=== PATIENT | male | born 1945 | race Caucasian/White ===

== ENCOUNTER → 2023-06-21 09:56 | Outpatient (BNVA) | payer MEDICARE, SELFPAY | PROVIDERS: Visit Provider Internal Medicine Nephrology | DX: I15.0 Renovascular hypertension (principal); N18.31 Chronic kidney disease, stage 3a; Z94.0 Kidney transplant status | CPT/HCPCS: 99212 ==

== ENCOUNTER 2023-06-21 10:02 | Outpatient (AMB) | payer MEDICARE, SELFPAY ==
--- NOTE | 2023-06-21 09:56 | HO.NEPHOV_ITS ---
HPI HPI Comments History of Present Illness Details I had the privilege of seeing Avery in follow-up of his kidney transplant. He had donor renal transplant on 01/26/2014 in [facility] in [place]. 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 He had a follow-up transplant renal artery ultrasound which was negative for any artery stenosis. He monitors his blood pressure readings closely at home. He continues to self intermittently catheterize himself 4 times a day. He has not had any hematuria, urinary tract infection. He has not taken any new medications lately. He continues to have his right upper extremity AV fistula which remains enlarged but remains at same size. He does not have any new skin rashes, joint swellings, fever, suprapubic pain, pain over his renal transplant, nausea, vomiting, diarrhea, shortness of breath, proximal nocturnal dyspnea, orthopnea or pedal edema. His weight has been steady and has not had any night sweats. He avoids any [id number] medications. He feels well. [facility] Medical History (Updated 06/23/23 @ 07:05 by Randy Addison MD) Obstructive uropathy Proteinuria Hyperparathyroidism due to renal insufficiency Chronic kidney disease, stage 3a Surgical History (Updated 06/21/23 @ 10:07 by Lynn Coleman MA) Kidney transplant status Family History (Updated 06/21/23 @ 10:08 by Lynn Coleman MA) Father Heart disease Hypertension (Updated 06/21/23 @ 10:07 by Lynn Coleman MA) Alcohol intake: never Patient Tobacco Use Status: Never used Tobacco Vital Signs 06/21/23 10:00 Weight 143 lb 2 oz BP 152/70 H Blood Pressure Location Lt brachial Position Sitting Pulse 69 Pulse Source Pulse Oximeter Physical Exam Vital Signs: Last Vital Signs Pulse 69 06/21/23 10:00 BP 152/70 H 06/21/23 10:00 Const General: comfortable and no acute distress Orientation/consciousness: patient oriented x3 HEENT Head: Yes normocephalic Mouth: Normal oral and palatal mucosa present Eyes EOM: EOMs intact bilaterally Neck Neck: Yes supple Resp Auscultation: clear to auscultation bilaterally Cardio Jugular venous distension: no JVD Rate: regular rate Heart sounds: Murmur heart sound present GI Palpation (GI): Soft to palpation Auscultation: normal bowel sounds General: Yes no CVA tenderness Back/Spine/Pelvis Back: no CVA tenderness Skin General skin exam: no rashes or lesions noted Neuro General: patient oriented x3 and moves all extremities Extrem General: Yes no pedal edema Assessment & Plan Assessment & Plan (1) Chronic kidney disease, stage 3a: Code(s): N18.31 - Chronic kidney disease, stage 3a (2) Renal transplant recipient: Code(s): Z94.0 - Kidney transplant status (3) Hypertension: Code(s): I10 - Essential (primary) hypertension Qualifiers: Hypertension type: renovascular hypertension Qualified Code(s): I15.0 - Renovascular hypertension Plan Avery has renal transplant since 26 January 2014 ( [facility] ). His transplant function had been stable with stable serum creatinine. He has not had any significant proteinuria. He had a transplant renal artery stenosis and underwent angioplasty and stenting of his renal artery. He monitors his blood pressure closely at home and has been at goal. He is on a low-sodium diet. He has not had any urinary infections. He intermittently self- catheterize 4 times a day. He has no clinical symptoms or signs of or tacrolimus toxicity. I plan to repeat Doppler of her transplant renal artery after next visit. He continues to have a functioning right upper extremity AV fistula which he does not want to be ligated now. He follows up with wash driller helper very closely. He had a basal cell on his right pinna which had been taken care of. He should remain well hydrated. I did not make any medication changes today. Follow-up blood work including tacrolimus levels were ordered. All his questions were answered. Refills were not requested. Time spent during encounter, retrieval of data and documentation 31 minutes. Orders: Orders Electrolytes 3 Months I10 - Essential (primary) hypertension, N18.31 - Chronic kidney disease, stage 3a, Z94.0 - Kidney transplant status Calcium 3 Months I10 - Essential (primary) hypertension, N18.31 - Chronic kidney disease, stage 3a, Z94.0 - Kidney transplant status Tacrolimus Prograf 3 Months I10 - Essential (primary) hypertension, N18.31 - Chronic kidney disease, stage 3a, Z94.0 - Kidney transplant status Blood Urea Nitrogen 3 Months I10 - Essential (primary) hypertension, N18.31 - Chronic kidney disease, stage 3a, Z94.0 - Kidney transplant status Creatinine 3 Months I10 - Essential (primary) hypertension, N18.31 - Chronic kidney disease, stage 3a, Z94.0 - Kidney transplant status Complete Blood Count Auto Diff 3 Months I10 - Essential (primary) hypertension, N18.31 - Chronic kidney disease, stage 3a, Z94.0 - Kidney transplant status Coding Level of Care Code Est Pt Level 4 (15319) Diagnoses Chronic kidney disease, stage 3a N18.31 Renal transplant recipient Z94.0 Renovascular hypertension I15.0 Hypertension type: renovascular hypertension
[2023-06-21 10:00] VITALS: BP 152/70; PULSE 69
== END 2023-06-21 10:39 | disposition home or self-care (01) ==
PROVIDERS: Visit Provider Internal Medicine Nephrology
DX: I12.9 Hypertensive chronic kidney disease with stage 1 through stage 4 chronic kidney disease, or unspecified chronic kidney disease (principal); N18.31 Chronic kidney disease, stage 3a; Z94.0 Kidney transplant status
CPT/HCPCS: 99214

== ENCOUNTER 2023-09-28 10:45 | Outpatient (AMB) | payer MEDICARE, SELFPAY ==
--- NOTE | 2023-09-28 10:54 | HO.NEPHOV_ITS ---
HPI HPI Comments History of Present Illness Details I had the privilege of seeing Avery in follow-up of his kidney transplant. He had donor renal transplant on 01/26/2014 in [facility] in [place]. 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 He had a follow-up transplant renal artery ultrasound which was negative for any artery stenosis. He monitors his blood pressure readings closely at home. He continues to self intermittently catheterize himself 4 times a day. He has not had any hematuria, urinary tract infection. He has not taken any new medications lately. He continues to have his right upper extremity AV fistula which remains enlarged but remains at same size. He does not have any new skin rashes, joint swellings, fever, suprapubic pain, pain over his renal transplant, nausea, vomiting, diarrhea, shortness of breath, proximal nocturnal dyspnea, orthopnea or pedal edema. His weight has been steady and has not had any night sweats. He avoids any [id number]-bqljoqq medications. 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 His PSA was OK with urologist( Alissa). He feels well [facility] Medical History (Updated 06/23/23 @ 07:05 by Randy Addison MD) Obstructive uropathy Proteinuria Hyperparathyroidism due to renal insufficiency Chronic kidney disease, stage 3a Surgical History Kidney transplant status Family History Father Heart disease Hypertension Social History Alcohol intake: never Patient Tobacco Use Status: Never used Tobacco Vital Signs 09/28/23 10:56 Height 5 ft 9 in Weight 143 lb 2 oz BMI 21.1 BP 128/70 Blood Pressure Location Lt brachial Position Sitting Physical Exam Vital Signs: Last Vital Signs BP 148/70 H 09/28/23 10:56 BMI result Body Mass Index 21.1 Const General: comfortable and no acute distress Orientation/consciousness: patient oriented x3 HEENT Head: Yes normocephalic Mouth: Normal oral and palatal mucosa present Eyes EOM: EOMs intact bilaterally Neck Neck: Yes supple Resp Auscultation: clear to auscultation bilaterally Cardio Jugular venous distension: no JVD Rate: regular rate GI Palpation (GI): Soft to palpation Auscultation: normal bowel sounds General: Yes no CVA tenderness Back/Spine/Pelvis Back: no CVA tenderness Skin General skin exam: no rashes or lesions noted Neuro General: patient oriented x3 and moves all extremities Extrem Other: AVF RUE General: Yes no pedal edema Assessment & Plan Assessment & Plan (1) Renal transplant recipient: Code(s): Z94.0 - Kidney transplant status (2) Chronic kidney disease, stage 3a: Code(s): N18.31 - Chronic kidney disease, stage 3a (3) Hypertension: Code(s): I10 - Essential (primary) hypertension Qualifiers: Hypertension type: renovascular hypertension Qualified Code(s): I15.0 - Renovascular hypertension Plan Avery has renal transplant since 26 January 2014 ( [facility] ). His transplant function had been stable with stable serum creatinine. He has n ot had any significant proteinuria. He had a transplant renal artery stenosis and underwent angioplasty and stenting of his renal artery. He monitors his blood pressure closely at home and has been at goal. He is on a low-sodium diet. He has not had any urinary infections. He intermittently self- catheterize 4 times a day. He has no clinical symptoms or signs of or tacrolimus toxicity. I plan to repeat Doppler of her transplant renal artery after next visit. He continues to have a functioning right upper extremity AV fistula which he does not want to be ligated now. He follows up with epic ambulatory analysts very closely. He should remain well hydrated. I did not make any medication changes today. Follow-up blood work including tacrolimus levels were ordered. All his questions were answered. Orders: Orders Creatinine Today I10 - Essential (primary) hypertension, N18.31 - Chronic kidney disease, stage 3a, Z94.0 - Kidney transplant status Blood Urea Nitrogen Today I10 - Essential (primary) hypertension, N18.31 - Chronic kidney disease, stage 3a, Z94.0 - Kidney transplant status Alanine Aminotransferase Today I10 - Essential (primary) hypertension, N18.31 - Chronic kidney disease, stage 3a, Z94.0 - Kidney transplant status Aspartate Amino Transferase Today I10 - Essential (primary) hypertension, N18.31 - Chronic kidney disease, stage 3a, Z94.0 - Kidney transplant status Parathyroid Hormone Intact Today I10 - Essential (primary) hypertension, N18.31 - Chronic kidney disease, stage 3a, Z94.0 - Kidney transplant status Complete Blood Count Auto Diff Today I10 - Essential (primary) hypertension, N18.31 - Chronic kidney disease, stage 3a, Z94.0 - Kidney transplant status Tacrolimus Prograf Today I10 - Essential (primary) hypertension, N18.31 - Chronic kidney disease, stage 3a, Z94.0 - Kidney transplant status Calcium Today I10 - Essential (primary) hypertension, N18.31 - Chronic kidney disease, stage 3a, Z94.0 - Kidney transplant status Electrolytes Today I10 - Essential (primary) hypertension, N18.31 - Chronic kidney disease, stage 3a, Z94.0 - Kidney transplant status Vitamin D 25-OH Total Today I10 - Essential (primary) hypertension, N18.31 - Chronic kidney disease, stage 3a, Z94.0 - Kidney transplant status Phosphorus Today I10 - Essential (primary) hypertension, N18.31 - Chronic kidney disease, stage 3a, Z94.0 - Kidney transplant status Coding Level of Care Code Est Pt Level 4 (55543) Diagnoses Renal transplant recipient Z94.0 Chronic kidney disease, stage 3a N18.31 Renovascular hypertension I15.0 Hypertension type: renovascular hypertension Results Reviewed Nephrology Results: No Data to Display
[2023-09-28 10:56] VITALS: BP 128/70; BMI 21.1
== END 2023-09-28 11:40 | disposition home or self-care (01) ==
PROVIDERS: Visit Provider Internal Medicine Nephrology
DX: Z94.0 Kidney transplant status (principal); N18.31 Chronic kidney disease, stage 3a; I15.0 Renovascular hypertension
CPT/HCPCS: 99214

== ENCOUNTER → 2023-09-28 10:45 | Outpatient (BNVA) | payer MEDICARE, SELFPAY | PROVIDERS: Visit Provider Internal Medicine Nephrology | DX: I15.0 Renovascular hypertension (principal); N18.31 Chronic kidney disease, stage 3a; Z94.0 Kidney transplant status | CPT/HCPCS: 99212 ==

== ENCOUNTER 2024-01-04 12:09 | Outpatient (AMB) | payer MEDICARE, SELFPAY ==
--- NOTE | 2024-01-04 12:42 | HO.NEPHOV ---
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 He had donor renal transplant on 01/26/2014 in [facility] in [place]. 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 He had a follow-up transplant renal artery ultrasound which was negative for any artery stenosis. He monitors his blood pressure readings closely at home. He continues to self intermittently catheterize himself 4 times a day. He has not had any hematuria, urinary tract infection. He has not taken any new medications lately. He continues to have his right upper extremity AV fistula which remains enlarged but remains at same size. He does not have any new skin rashes, joint swellings, fever, suprapubic pain, pain over his renal transplant, nausea, vomiting, diarrhea, shortness of breath, proximal nocturnal dyspnea, orthopnea or pedal edema. His weight has been steady and has not had any night sweats. He avoids any iutj-jkp-vwymxpd medications. He has H/O BCC which he follows with his warp hanger . His PSA was OK with urologist( Alissa). He feels well [facility] Medical History (Updated 06/23/23 @ 07:05 by Randy Addison MD) Obstructive uropathy Proteinuria Hyperparathyroidism due to renal insufficiency Chronic kidney disease, stage 3a Surgical History Kidney transplant status Family History Father Heart disease Hypertension Social History Alcohol intake: never Patient Tobacco Use Status: Never used Tobacco Physical Exam Vital Signs: Last Vital Signs Pulse 56 01/04/24 12:43 BP 130/60 01/04/24 12:43 Pulse Ox 98 01/04/24 12:43 Oxygen Delivery Method Room Air 01/04/24 12:43 BMI result Body Mass Index 21.3 Const General: comfortable and no acute distress Orientation/consciousness: patient oriented x3 HEENT Head: Yes normocephalic Mouth: Normal oral and palatal mucosa present Eyes EOM: EOMs intact bilaterally Neck Neck: Yes supple Resp Auscultation: clear to auscultation bilaterally Cardio Jugular venous distension: no JVD Rate: regular rate GI Palpation (GI): Soft to palpation Auscultation: normal bowel sounds General: Yes no CVA tenderness Back/Spine/Pelvis Back: no CVA tenderness Skin General skin exam: no rashes or lesions noted Neuro General: patient oriented x3 and moves all extremities Extrem Other: RUE AVF + General: Yes no pedal edema Results Reviewed Nephrology Results: No Data to Display Assessment & Plan Assessment & Plan (1) Renal transplant recipient: Code(s): Z94.0 - Kidney transplant status Category: Surgical (2) Chronic kidney disease, stage 3a: Code(s): N18.31 - Chronic kidney disease, stage 3a Category: Medical (3) Hypertension: Code(s): I10 - Essential (primary) hypertension Category: Medical Qualifiers: Hypertension type: renovascular hypertension Qualified Code(s): I15.0 - Renovascular hypertension Plan Avery has renal transplant since 26 January 2014 ( [facility] ). His transplant function had been stable with stable serum creatinine. He has not had any significant proteinuria. He had a transplant renal artery stenosis and underwent angioplasty and stenting of his renal artery. He monitors his blood pressure closely at home and has been at goal. He is on a low-sodium diet. He has not had any urinary infections. He intermittently self-catheterize 4 times a day. He has no clinical symptoms or signs of or tacrolimus toxicity. I plan to repeat Doppler of her transplant renal artery with time. I increased his tacrolimus dosage to 2.5 mg daily. He was asked to drink less free water given his fluctuant serum sodium. He continues to have a functioning right upper extremity AV fistula which he does not want to be ligated now. He follows up with warp hanger very closely. He should remain well hydrated. I did not make any other medication changes today. Follow-up blood work including tacrolimus levels were ordered. All his questions were answered. Orders: Orders Tacrolimus Prograf Today I15.0 - Renovascular hypertension, N18.31 - Chronic kidney disease, stage 3a, Z94.0 - Kidney transplant status Blood Urea Nitrogen Today I15.0 - Renovascular hypertension, N18.31 - Chronic kidney disease, stage 3a, Z94.0 - Kidney transplant status Creatinine Today I15.0 - Renovascular hypertension, N18.31 - Chronic kidney disease, stage 3a, Z94.0 - Kidney transplant status Electrolytes Today I15.0 - Renovascular hypertension, N18.31 - Chronic kidney disease, stage 3a, Z94.0 - Kidney transplant status Medications: Changed From amlodipine 10 mg PO DAILY To amlodipine 10 mg PO DAILY 90 days 90 tabs 3RF Coding Level of Care Code Est Pt Level 4 (88552) Diagnoses Renal transplant recipient Z94.0 Chronic kidney disease, stage 3a N18.31 Renovascular hypertension I15.0 Hypertension type: renovascular hypertension
[2024-01-04 12:43] VITALS: BP 130/60; PULSE 56; O2SAT 98; BMI 21.3
== END 2024-01-04 13:13 | disposition home or self-care (01) ==
PROVIDERS: Visit Provider Internal Medicine Nephrology
DX: Z94.0 Kidney transplant status (principal); N18.31 Chronic kidney disease, stage 3a; I15.0 Renovascular hypertension
CPT/HCPCS: 99214

== ENCOUNTER → 2024-01-04 12:09 | Outpatient (BNVA) | payer MEDICARE, SELFPAY | PROVIDERS: Visit Provider Internal Medicine Nephrology | DX: N18.31 Chronic kidney disease, stage 3a (principal); I15.0 Renovascular hypertension; Z79.899 Other long term (current) drug therapy; Z94.0 Kidney transplant status | CPT/HCPCS: 99212 ==

== ENCOUNTER 2024-04-06 10:34 | Outpatient (AMB) | payer MEDICARE, SELFPAY ==
[2024-04-06 11:04] VITALS: BP 140/54; PULSE 65; O2SAT 99; BMI 21.0
--- NOTE | 2024-04-06 11:04 | HO.NEPHOV_ITS ---
Vital Signs 04/06/24 11:04 Height 5 ft 9 in Weight 142 lb 8 oz BMI 21.0 BP 140/54 H Blood Pressure Location Lt brachial Position Sitting Pulse 65 Pulse Source Pulse Oximeter Pulse Oximetry (%) 99 Oxygen Delivery Method Room Air Intake Visit Reasons: 10 wks follow up/ CON Dermatology Technician Required: No Accompanied by: Self / Same As Patient Allergies No Known Allergies Allergy (Verified 04/06/24 11:06) HPI Comments Details: I had the privilege of seeing Avery in follow-up of his kidney transplant. He had donor renal transplant on 01/26/2014 in [facility] in [place]. 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 He had a follow-up transplant renal artery ultrasound which was negative for any artery stenosis. He monitors his blood pressure readings closely at home. He continues to self intermittently catheterize himself 4 times a day. He has not had any hematuria, urinary tract infection. He has not taken any new medications lately. He continues to have his right upper extremity AV fistula which remains enlarged but remains at same size. He does not have any new skin rashes, joint swellings, fever, suprapubic pain, pain over his renal transplant, nausea, vo miting, diarrhea, shortness of breath, proximal nocturnal dyspnea, orthopnea or pedal edema. His weight has been steady and has not had any night sweats. He avoids any jqfm-smj-hwjilhr medications. He has H/O BCC which he follows with his chairperson anesthesiology . His PSA was OK with urologist( Alissa). He feels well [facility] Medical History (Updated 06/23/23 @ 07:05 by Randy Addison MD) Obstructive uropathy Proteinuria Hyperparathyroidism due to renal insufficiency Chronic kidney disease, stage 3a Surgical History Kidney transplant status Family History Father Heart disease Hypertension Social History Alcohol intake: never Patient Tobacco Use Status: Never used Tobacco Physical Exam Vital Signs: Last Vital Signs Pulse 65 04/06/24 11:04 BP 140/54 H 04/06/24 11:04 Pulse Ox 99 04/06/24 11:04 Oxygen Delivery Method Room Air 04/06/24 11:04 BMI result Body Mass Index 21.0 Const General: comfortable and no acute distress Orientation/consciousness: patient oriented x3 HEENT Head: Yes normocephalic Mouth: Normal oral and palatal mucosa present Eyes EOM: EOMs intact bilaterally Neck Neck: Yes supple Resp Auscultation: clear to auscultation bilaterally Cardio Jugular venous distension: no JVD Rate: regular rate GI Palpation (GI): Soft to palpation Auscultation: normal bowel sounds General: Yes no CVA tenderness Back/Spine/Pelvis Back: no CVA tenderness Skin General skin exam: no rashes or lesions noted Neuro General: patient oriented x3 and moves all extremities Extrem Other: R UE AVF Results Reviewed Nephrology Results: No Data to Display Assessment & Plan Assessment & Plan (1) Chronic kidney disease, stage 3a: Code(s): N18.31 - Chronic kidney disease, stage 3a Category: Medical (2) Renal transplant recipient: Code(s): Z94.0 - Kidney transplant status Category: Surgical (3) Hypertension: Code(s): I10 - Essential (primary) hypertension Category: Medical Qualifiers: Hypertension type: renovascular hypertension Qualified Code(s): I15.0 - Renovascular hypertension Plan Avery has renal transplant since 26 January 2014 ( [facility] ). His transplant function had been stable with stable serum creatinine. He has not had any significant proteinuria. He had a transplant renal artery stenosis and underwent angioplasty and stenting of his renal artery. I shall repeat Doppler renal tx artery after next visit. He monitors his blood pressure closely at home and has been at goal. He is on a low-sodium diet. He has not had any urinary infections. He intermittently self-catheterize 4 times a day. He has no clinical symptoms or signs of or tacrolimus toxicity. I plan to repeat Doppler of her transplant renal artery with time. He was asked to drink less free water given his fluctuant serum sodium. He continues to have a functioning right upper extremity AV fistula which he wants to be ligated now ( referred). He follows up with chairperson anesthesiology very closely. He should remain well hydrated. I did not make any other medication changes today. Follow-up blood work including tacrolimus levels were ordered. All his questions were answered. Orders: Orders Tacrolimus Prograf Today I15.0 - Renovascular hypertension, N18.31 - Chronic kidney disease, stage 3a, Z94.0 - Kidney transplant status Blood Urea Nitrogen Today I15.0 - Renovascular hypertension, N18.31 - Chronic kidney disease, stage 3a, Z94.0 - Kidney transplant status Calcium Today I15.0 - Renovascular hypertension, N18.31 - Chronic kidney disease, stage 3a, Z94.0 - Kidney transplant status Phosphorus Today I15.0 - Renovascular hypertension, N18.31 - Chronic kidney disease, stage 3a, Z94.0 - Kidney transplant status Aspartate Amino Transferase Today I15.0 - Renovascular hypertension, N18.31 - Chronic kidney disease, stage 3a, Z94.0 - Kidney transplant status Complete Blood Count Auto Diff Today I15.0 - Renovascular hypertension, N18.31 - Chronic kidney disease, stage 3a, Z94.0 - Kidney transplant status Creatinine Today I15.0 - Renovascular hypertension, N18.31 - Chronic kidney disease, stage 3a, Z94.0 - Kidney transplant status Electrolytes Today I15.0 - Renovascular hypertension, N18.31 - Chronic kidney disease, stage 3a, Z94.0 - Kidney transplant status Magnesium Today I15.0 - Renovascular hypertension, N18.31 - Chronic kidney disease, stage 3a, Z94.0 - Kidney transplant status Alanine Aminotransferase Today I15.0 - Renovascular hypertension, N18.31 - Chronic kidney disease, stage 3a, Z94.0 - Kidney transplant status Coding Level of Care Code Est Pt Level 4 (25036) Diagnoses Chronic kidney disease, stage 3a N18.31 Renal transplant recipient Z94.0 Renovascular hypertension I15.0 Hypertension type: renovascular hypertension
== END 2024-04-06 11:33 | disposition home or self-care (01) ==
PROVIDERS: Visit Provider Internal Medicine Nephrology
DX: N18.31 Chronic kidney disease, stage 3a (principal); T86.19 Other complication of kidney transplant; I15.0 Renovascular hypertension; Z94.0 Kidney transplant status
CPT/HCPCS: 99214

== ENCOUNTER → 2024-04-06 10:34 | Outpatient (BNVA) | payer MEDICARE, SELFPAY | PROVIDERS: Visit Provider Internal Medicine Nephrology | DX: I15.0 Renovascular hypertension (principal); N18.31 Chronic kidney disease, stage 3a; Z94.0 Kidney transplant status; T86.19 Other complication of kidney transplant | CPT/HCPCS: 99212 ==

== ENCOUNTER 2024-06-13 14:09 | Outpatient (AMB) | payer MEDICARE, SELFPAY ==
--- NOTE | 2024-06-13 14:18 | HO.NEPHOV_ITS ---
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 He had donor renal transplant on 01/26/2014 in [facility] in [place]. 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 He had a follow-up transplant renal artery ultrasound which was negative for any artery stenosis. He has been having flu-like symptoms for last couple of weeks. He had chills, fever, GI symptoms with a poor appetite. Currently he feels very lousy with unremitting continuous cough. He monitors his blood pressure readings closely at home. He has been taking CAMRYN inhibitor while being sick. His urine output is marginally less than usual. He continues to self intermittently catheterize himself 4 times a day. He has not had any hematuria, urinary tract infection. He has not taken any other new medications lately. He continues to have his right upper extremity AV fistula which remains enlarged but remains at same size. He does not have any new skin rashes, joint swellings, fever, suprapubic pain, pain over his renal transplant, nausea, vomiting, diarrhea, shortness of breath, proximal nocturnal dyspnea, orthopnea or pedal edema. His weight has been steady and has not had any night sweats. He avoids any [id number] medications. He has H/O BCC which he follows with his county tax assessor . His PSA was OK with urologist( Alissa). [facility] Medical History (Updated 06/14/24 @ 09:26 by Randy Addison MD) Obstructive uropathy Proteinuria Hyperparathyroidism due to renal insufficiency Chronic kidney disease, stage 3a Surgical History Kidney transplant status Family History Father Heart disease Hypertension Social History Alcohol intake: never Patient Tobacco Use Status: Never used Tobacco Review of Systems Const All systems reviewed & are unremarkable except as noted in HPI and below Physical Exam Vital Signs: Last Vital Signs Pulse 66 06/13/24 14:20 BP 122/60 06/13/24 14:20 Pulse Ox 97 06/13/24 14:20 Oxygen Delivery Method Room Air 06/13/24 14:20 BMI result Body Mass Index 20.3 Const General: comfortable and no acute distress Orientation/consciousness: patient oriented x3 HEENT Head: Yes normocephalic Mouth: Normal oral and palatal mucosa present Eyes EOM: EOMs intact bilaterally Neck Neck: Yes supple Resp Auscultation: diminished lung sounds Cardio Jugular venous distension: no JVD Rate: regular rate GI Palpation (GI): Soft to palpation Auscultation: normal bowel sounds General: Yes no CVA tenderness Back/Spine/Pelvis Back: no CVA tenderness Skin General skin exam: no rashes or lesions noted Neuro General: patient oriented x3 and moves all extremities Extrem General: Yes no pedal edema Results Reviewed Nephrology Results: Hgb 13.2 g/dl (14.0-18.0) L 06/13/24 WBC 4.1 X10*3/uL (4.8-10.8) L 06/13/24 Plt Count 280 X10*3/uL (160-400) 06/13/24 Sodium 129 mmol/L (135-145) L 06/13/24 Potassium 4.5 mmol/L (3.3-5.1) 06/13/24 Chloride 99 mmol/L (96-108) 06/13/24 Carbon Dioxide 19 mmol/L (22-29) L 06/13/24 BUN 30 mg/dL (9-16) H 06/13/24 Creatinine 1.81 mg/dL (0.5-1.4) H 06/13/24 Calcium 9.6 mg/dL (8.4-10.2) 06/13/24 Phosphorus 2.8 mg/dL (2.7-4.5) 06/13/24 PTH Intact 109.3 pg/mL (8.7-77.1) H 06/13/24 Assessment & Plan Assessment & Plan (1) Chronic kidney disease, stage 3a: Code(s): N18.31 - Chronic kidney disease, stage 3a Category: Medical (2) Renal transplant recipient: Code(s): Z94.0 - Kidney transplant status Category: Surgical (3) Hypertension: Code(s): I10 - Essential (primary) hypertension Category: Medical Qualifiers: Hypertension type: renovascular hypertension Qualified Code(s): I15.0 - Renovascular hypertension (4) Cough: Code(s): R05.9 - Cough, unspecified Category: Medical Qualifiers: Cough type: acute Qualified Code(s): R05.1 - Acute cough Plan Avery has renal transplant since 26 January 2014 ( [facility] ). His transplant function had been stable . He has not had any significant proteinuria. He has been having respiratory illness and continued to take CAMRYN inhibitor which has resulted in lower urine output than usual. I have asked him to hold his lisinopril. He had a transplant renal artery stenosis and underwent angioplasty and stenting of his renal artery. I shall repeat Doppler renal tx artery with time. He monitors his blood pressure closely at home and has been at goal. He is on a low-sodium diet. He has not had any urinary infections. He intermittently self-catheterize 4 times a day. He has no clinical symptoms or signs of or tacrolimus toxicity. He was asked to drink less free water given his fluctuant serum sodium. He continues to have a functioning right upper extremity AV fistula which he wants to be ligated now ( referred). He follows up with county tax assessor very closely. He should remain well hydrated. I have sent him to have stat lab work and chest x-ray. If he shows any pulmonary infiltrate, I have start him on antibiotics and short course of prednisone. If there is pulmonary infiltrate he will need a follow-up CT scan in a few weeks given history of renal transplant. All his and his 's questions were answered. Time spent coordinating care, patient encounter and documentation 40 minutes. Orders: Orders Complete Blood Count Auto Diff 06/13/24 I15.0 - Renovascular hypertension, N18.31 - Chronic kidney disease, stage 3a, Z94.0 - Kidney transplant status Electrolytes 06/13/24 I15.0 - Renovascular hypertension, N18.31 - Chronic kidney disease, stage 3a, Z94.0 - Kidney transplant status Alanine Aminotransferase 06/13/24 I15.0 - Renovascular hypertension, N18.31 - Chronic kidney disease, stage 3a, Z94.0 - Kidney transplant status Aspartate Amino Transferase 06/13/24 I15.0 - Renovascular hypertension, N18.31 - Chronic kidney disease, stage 3a, Z94.0 - Kidney transplant status Tacrolimus Prograf 06/13/24 I15.0 - Renovascular hypertension, N18.31 - Chronic kidney disease, stage 3a, Z94.0 - Kidney transplant status Vitamin D 25-OH Total 06/13/24 I15.0 - Renovascular hypertension, N18.31 - Chronic kidney disease, stage 3a, Z94.0 - Kidney transplant status XR chest 1V 06/13/24 R05.9 - Cough, unspecified, Z94.0 - Kidney transplant status Calcium 06/13/24 I15.0 - Renovascular hypertension, N18.31 - Chronic kidney disease, stage 3a, Z94.0 - Kidney transplant status Blood Urea Nitrogen 06/13/24 I15.0 - Renovascular hypertension, N18.31 - Chronic kidney disease, stage 3a, Z94.0 - Kidney transplant status Creatinine 06/13/24 I15.0 - Renovascular hypertension, N18.31 - Chronic kidney disease, stage 3a, Z94.0 - Kidney transplant status Phosphorus 06/13/24 I15.0 - Renovascular hypertension, N18.31 - Chronic kidney disease, stage 3a, Z94.0 - Kidney transplant status Magnesium 06/13/24 I15.0 - Renovascular hypertension, N18.31 - Chronic kidney disease, stage 3a, Z94.0 - Kidney transplant status Parathyroid Hormone Intact 06/13/24 I15.0 - Renovascular hypertension, N18.31 - Chronic kidney disease, stage 3a, Z94.0 - Kidney transplant status Coding Level of Care Code Est Pt Level 5 (93703) Diagnoses Chronic kidney disease, stage 3a N18.31 Renal transplant recipient Z94.0 Renovascular hypertension I15.0 Hypertension type: renovascular hypertension Acute cough R05.1 Cough type: acute
[2024-06-13 14:20] VITALS: BP 122/60; PULSE 66; O2SAT 97; BMI 20.3
== END 2024-06-13 14:55 | disposition home or self-care (01) ==
PROVIDERS: Visit Provider Internal Medicine Nephrology
DX: N18.31 Chronic kidney disease, stage 3a (principal); Z94.0 Kidney transplant status; I15.0 Renovascular hypertension; R05.1 Acute cough
CPT/HCPCS: 99215

== ENCOUNTER 2024-06-13 14:09 | Outpatient (REF) | payer MEDICARE, SELFPAY ==
--- NOTE | ~2024-06-13 | XR_ITS ---
EXAMINATION: XR CHEST CLINICAL INFORMATION: Cough. COMPARISON: None available. TECHNIQUE: Frontal view of the chest was obtained. FINDINGS: Normal appearance of the cardiomediastinal silhouette. Mild central and bibasilar peribronchial thickening. Subtle focal asymmetric haziness projecting over the medial right lower lung field. No pleural effusion. No pneumothorax. No acute osseous findings. XR/XR chest 1V IMPRESSION: Findings are suggestive of small airways disease with equivocal early infiltrates in the right lower lung field. Electronically signed by: Alia Justin MD 06/13/2024 05:17 PM EST
[2024-06-13 15:38] LABS: MANUAL DIFF FLAG NO
[2024-06-13 15:44] LABS: Eosinophils Percent Auto 0.2 % (0-4); Hematocrit 38.4 % (42.0-52.0); Hemoglobin 13.2 g/dl (14.0-18.0); Imm Gran Abs Auto 0.07 X10*3/uL (0.00-0.03); Imm Gran Pct Auto 1.7 % (0.0-0.4); Lymphocytes Absolute Auto 0.3 X10*3/uL (1.2-4.9); Lymphocytes Percent Auto 7.2 % (20-40); Mean Corpuscular HGB Conc 34.4 g/dl (31.0-36.0); Mean Corpuscular Hemoglobin 30.9 pg (27.0-33.0); Mean Corpuscular Volume 89.9 fL (80.0-98.0); Mean Platelet Volume 8.6 fL (9.4-12.4); Monocytes Absolute Auto 0.7 X10*3/uL (0.1-1.2); Monocytes Percent Auto 17.5 % (2-11); Neutrophils Percent Auto 73.4 % (45-73); Platelet Count 280 X10*3/uL (160-400); Red Blood Count 4.27 X10*6/uL (4.60-5.80); Red Cell Distribution Width 11.9 % (11.0-16.0); White Blood Count 4.1 X10*3/uL (4.8-10.8)
[2024-06-13 16:16] LABS: Parathyroid Hormone Intact 109.3 pg/mL (8.7-77.1)
[2024-06-13 16:57] LABS: Alanine Aminotransferase 39 U/L (0-40); Anion Gap 16 (12-20); Aspartate Amino Transferase 38 U/L (5-37); Blood Urea Nitrogen 30 mg/dL (9-16); Calcium 9.6 mg/dL (8.4-10.2); Carbon Dioxide 19 mmol/L (22-29); Chloride 99 mmol/L (96-108); Estimated Glomerular Filt Rate 36; Magnesium 1.7 mg/dL (1.6-2.6); Phosphorus 2.8 mg/dL (2.7-4.5); Potassium 4.5 mmol/L (3.3-5.1); Sodium 129 mmol/L (135-145)
[2024-06-13 17:07] LABS: Vitamin D 25-OH Total 49.1 ng/mL (>30)
[2024-06-14 15:44] LABS: Tacrolimus Prograf 12.6 mcg/L
== END 2024-06-13 14:10 | disposition home or self-care (01) ==
LOC: HO.LAB 14:09
PROVIDERS: Visit Provider Internal Medicine Nephrology
DX: I15.0 Renovascular hypertension (principal); N18.31 Chronic kidney disease, stage 3a; Z94.0 Kidney transplant status; R05.1 Acute cough
CPT/HCPCS: 36415; 71045; 80051; 80197; 82306; 82310; 82565; 83735; 83970; 84100; 84450; 84460; 84520; 85025; 99212

== ENCOUNTER 2024-07-06 09:28 | Outpatient (AMB) | payer MEDICARE, SELFPAY ==
--- NOTE | 2024-07-06 09:34 | HO.NEPHOV ---
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 He had donor renal transplant on 01/26/2014 in [facility] in [place]. 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 He had a follow-up transplant renal artery ultrasound which was negative for any artery stenosis. He has been having flu-like symptoms for last couple of weeks. He had chills, fever, GI symptoms with a poor appetite. Currently he feels very lousy with unremitting continuous cough. He monitors his blood pressure readings closely at home. He is on ACEI. He continues to self intermittently catheterize himself 4 times a day. He has not had any hematuria, urinary tract infection. He continues to have his right upper extremity AV fistula which remains enlarged but remains at same size. He does not have any new skin rashes, joint swellings, fever, suprapubic pain, pain over his renal transplant, nausea, vomiting, diarrhea, shortness of breath, proximal nocturnal dyspnea, orthopnea or pedal edema. His weight has been steady and has not had any night sweats. He avoids any [id number] medications. 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 His PSA was OK with urologist( Alissa). He recently had pneumonia which was treated with antibiotics. He had been having RUE swelling which had some redness and edema. It was treated with antibiotics but swelling persists. [facility]LY [facility], [facility] Medical History (Updated 07/06/24 @ 10:19 by Randy Addison MD) Obstructive uropathy Proteinuria Hyperparathyroidism due to renal insufficiency Chronic kidney disease, stage 3a Surgical History Kidney transplant status Family History Father Heart disease Hypertension Social History Alcohol intake: never Patient Tobacco Use Status: Never used Tobacco Review of Systems Const All systems reviewed & are unremarkable except as noted in HPI and below Physical Exam Vital Signs: Last Vital Signs Pulse 73 07/06/24 09:43 BP 140/60 H 07/06/24 09:43 Pulse Ox 97 07/06/24 09:43 Oxygen Delivery Method Room Air 07/06/24 09:43 BMI result Body Mass Index 21.0 Const General: comfortable and no acute distress Orientation/consciousness: patient oriented x3 HEENT Head: Yes normocephalic Mouth: Normal oral and palatal mucosa present Eyes EOM: EOMs intact bilaterally Neck Neck: Yes supple Resp Auscultation: clear to auscultation bilaterally Cardio Jugular venous distension: no JVD Rate: regular rate GI Palpation (GI): Soft to palpation Auscultation: normal bowel sounds General: Yes no CVA tenderness Back/Spine/Pelvis Back: no CVA tenderness Skin General skin exam: no rashes or lesions noted Neuro General: patient oriented x3 and moves all extremities Extrem General: Yes no pedal edema Results Reviewed Nephrology Results: Hgb 13.2 g/dl (14.0-18.0) L 06/13/24 WBC 4.1 X10*3/uL (4.8-10.8) L 06/13/24 Plt Count 280 X10*3/uL (160-400) 06/13/24 Sodium 129 mmol/L (135-145) L 06/13/24 Potassium 4.5 mmol/L (3.3-5.1) 06/13/24 Chloride 99 mmol/L (96-108) 06/13/24 Carbon Dioxide 19 mmol/L (22-29) L 06/13/24 BUN 30 mg/dL (9-16) H 06/13/24 Creatinine 1.81 mg/dL (0.5-1.4) H 06/13/24 Calcium 9.6 mg/dL (8.4-10.2) 06/13/24 Phosphorus 2.8 mg/dL (2.7-4.5) 06/13/24 PTH Intact 109.3 pg/mL (8.7-77.1) H 06/13/24 Assessment & Plan Assessment & Plan (1) Chronic kidney disease, stage 3a: Code(s): N18.31 - Chronic kidney disease, stage 3a Category: Medical (2) Hypertension: Code(s): I10 - Essential (primary) hypertension Category: Medical Qualifiers: Hypertension type: renovascular hypertension Qualified Code(s): I15.0 - Renovascular hypertension (3) Renal transplant recipient: Code(s): Z94.0 - Kidney transplant status Category: Surgical (4) Cough: Code(s): R05.9 - Cough, unspecified Category: Medical Qualifiers: Cough type: acute Qualified Code(s): R05.1 - Acute cough (5) AVF (arteriovenous fistula): Code(s): I77.0 - Arteriovenous fistula, acquired Category: Medical Plan Avery has renal transplant since 26 January 2014 ( [facility] ). His transplant function had been stable . He has not had any significant proteinuria. His lisinopril is on hold since he had the pneumonia. He had a transplant renal artery stenosis and underwent angioplasty and stenting of his renal artery. I shall repeat Doppler renal tx artery with time. He monitors his blood pressure closely at home and has been at goal. He is on a low-sodium diet. He has not had any urinary infections. He intermittently self-catheterize 4 times a day. He has no clinical symptoms or signs of or tacrolimus toxicity. He was asked to drink less free water given his fluctuant serum sodium. He continues to have a functioning right upper extremity AV fistula which he wants to be ligated now ( referred). He follows up with intermodal customer service very closely. He should remain well hydrated. I agreed to restart ACEI. He had a pulmonary infiltrate in a CXR for which he will need a follow-up CT scan ( ordered)given history of renal transplant. He needs urgent vascular eval and ligation of AVF. Dr Marroquin agreed to see him today. All his and his 's questions were answered. Orders: Orders Complete Blood Count Auto Diff 1 Month N18.31 - Chronic kidney disease, stage 3a Phosphorus 1 Month N18.31 - Chronic kidney disease, stage 3a Magnesium 1 Month N18.31 - Chronic kidney disease, stage 3a CT chest wo IV con Today R05.1 - Acute cough Creatinine 1 Month N18.31 - Chronic kidney disease, stage 3a Blood Urea Nitrogen 1 Month N18.31 - Chronic kidney disease, stage 3a Electrolytes 1 Month N18.31 - Chronic kidney disease, stage 3a Calcium 1 Month N18.31 - Chronic kidney disease, stage 3a Tacrolimus Prograf 1 Month N18.31 - Chronic kidney disease, stage 3a Referrals Vascular Surgery Referral I77.0 - Arteriovenous fistula, acquired Medications: Changed From tacrolimus (5 x 0.5 mg) Take 1 mg Am and 1.5 mg PM 90 days 450 caps 4RF To tacrolimus (5 x 0.5 mg) Take 2mg AM and 3mg PM 90 days 450 caps 4RF Coding Level of Care Code Est Pt Level 4 (65537) Diagnoses Chronic kidney disease, stage 3a N18.31 Renovascular hypertension I15.0 Hypertension type: renovascular hypertension Renal transplant recipient Z94.0 Acute cough R05.1 Cough type: acute AVF (arteriovenous fistula) I77.0
[2024-07-06 09:43] VITALS: BP 140/60; PULSE 73; O2SAT 97; BMI 21.0
== END 2024-07-06 10:29 | disposition home or self-care (01) ==
PROVIDERS: Visit Provider Internal Medicine Nephrology
DX: N18.31 Chronic kidney disease, stage 3a (principal); I15.0 Renovascular hypertension; Z94.0 Kidney transplant status; R05.1 Acute cough; I77.0 Arteriovenous fistula, acquired
CPT/HCPCS: 99214

== ENCOUNTER → 2024-07-06 09:28 | Outpatient (BNVA) | payer MEDICARE, SELFPAY | PROVIDERS: Visit Provider Internal Medicine Nephrology | DX: I77.0 Arteriovenous fistula, acquired (principal); I15.0 Renovascular hypertension; N18.31 Chronic kidney disease, stage 3a; R05.1 Acute cough; Z94.0 Kidney transplant status | CPT/HCPCS: 99202; 99212 ==

== ENCOUNTER 2024-07-06 10:54 | Outpatient (AMB) | payer MEDICARE, SELFPAY ==
[2024-07-06 10:58] VITALS: BMI 21.0
--- NOTE | 2024-07-06 10:58 | A.OFFVIS_ITS ---
Vital Signs 07/06/24 10:58 Height 5 ft 9 in Weight 142 lb BMI 21.0 Intake Visit Reasons: [employer] referral for Fistula Intake Note: [employer] referred from Nephrology for Right UE weeping s/p fistula placement over a deceade ago. Has not been in use to to Kidney transplant 11 yrs ago. Pt states weeping started yesterday and Right LE swelling has been worsening since last week. Allergies No Known Allergies Allergy (Verified 07/06/24 11:03) HPI HPI INS[employer] referral for Fistula: Details: Very pleasant 79-year-old gentleman who presents for referral for right arm fistula with arm swelling. 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 He has been followed by him for kidney transplant nearly 10 years ago. This was performed on 01/26/2014 at [facility] in [place]. Since that time he has been doing extremely well. Many years ago he had a left upper extremity brachiocephalic fistula placed. It has progressively been getting larger. Most recently his arm began swelling and he has now some serous drainage from the arm as well. He now presents to us for vascular evaluation. [facility] Medical History Obstructive uropathy Proteinuria Hyperparathyroidism due to renal insufficiency Chronic kidney disease, stage 3a Surgical History Kidney transplant status Family History Father Heart disease Hypertension Social History Alcohol intake: never Patient Tobacco Use Status: Never used Tobacco Review of Systems Const All systems reviewed & are unremarkable except as noted in HPI and below Reports no additional complaints ENT Reports Normal hearing present Card Denies chest pain, Denies chest pain at rest, Denies chest pain with activity and Denies pedal edema Resp Denies cough GI Denies abdominal pain Musc Denies abnormal gait, Denies muscle cramps and Denies radiating pain into limb Skin/Breast Denies skin ulcer and Denies wounds Neuro Reports Normal hearing present and Denies abnormal gait Psych Reports no additional complaints Physical Exam Vital Signs: BMI result Body Mass Index 21.0 Const General: cooperative, healthy appearing and comfortable Orientation/consciousness: oriented to person, oriented to place and oriented to time HEENT Head: Yes normal to inspection Neck Neck: Yes normal visual inspection Carotids: no bruits Chest Chest palpation & inspection: normal inspection of the chest Resp Effort & Inspection: normal respiratory effort and able to speak in complete sentences Auscultation: clear to auscultation bilaterally, no crackles, no rales, no rhonchi and no wheezes Cardio Rate: regular rate Rhythm: regular rhythm Heart sounds: S1 normal heart sound present and S2 normal heart sound present Bruits: no carotid bruits Peripheral pulses: Peripheral pulses 2+ throughout GI Inspection: Yes normal to inspection Skin Other: Right upper extremity +2 edema. 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 Wounds: no wounds Hair: normal Neuro General: oriented to person, oriented to place and oriented to time Cranial nerves: Yes CN's II-XII intact bilaterally and Yes Normal hearing present Cognition (Neuro): normal cognition Motor exam (neuro): 5/5 motor strength present throughout Extrem Other: venous exam: No significant superficial varicosities or spider telangiectasias, minimal edema General: No clubbing, No cyanosis and No edema Psych Appearance: grossly normal Mental Status: mental status grossly normal Speech and movement: Normal speech and movement present Assessment & Plan Assessment & Plan (1) AVF (arteriovenous fistula): Code(s): I77.0 - Arteriovenous fistula, acquired Category: Medical Plan: In short patient has a right upper extremity AV fistula. 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 The patient will require right upper extremity fistula ligation. Of note the fistula is no longer in use due to his kidney transplant. Risks benefits complications of the procedure were discussed in detail with the patient. We will try to schedule as soon as possible. Coding Level of Care Code New Pt Level 4 (46710) Diagnoses AVF (arteriovenous fistula) I77.0
== END 2024-07-06 13:54 | disposition home or self-care (01) ==
LOC: HO.HVS 10:55
PROVIDERS: Visit Provider Surgery Vascular Surgery
DX: I77.0 Arteriovenous fistula, acquired (principal)
CPT/HCPCS: 99204

== ENCOUNTER 2024-07-17 07:15 | Day surgery (SDC) | payer MEDICARE, SELFPAY ==
[2024-07-17 07:28] VITALS: BMI 20.7
[2024-07-17 07:49] VITALS: BP 152/57; PULSE 74; RESP 15; TEMP 36.8; O2SAT 100
[2024-07-17 07:53] LABS: Hematocrit 31.9 % (42.0-52.0); Hemoglobin 10.6 g/dl (14.0-18.0); Mean Corpuscular HGB Conc 33.2 g/dl (31.0-36.0); Mean Corpuscular Hemoglobin 30.7 pg (27.0-33.0); Mean Corpuscular Volume 92.5 fL (80.0-98.0); Mean Platelet Volume 8.7 fL (9.4-12.4); Platelet Count 435 X10*3/uL (160-400); Red Blood Count 3.45 X10*6/uL (4.60-5.80); Red Cell Distribution Width 13.2 % (11.0-16.0); White Blood Count 7.9 X10*3/uL (4.8-10.8)
--- NOTE | 2024-07-17 08:02 | P.CONAN_ITS ---
Documented by User: Socorro Beard NP 07/14/24 11:06 HPI - Anesthesia Eval Consult details Narrative: 79yo M for Right Arm Fistula Ligation s/p renal transplant 2013 without further dialysis/fistula use 07/06/24 renal office visit note describes pt with cough/fever/tx for pulmo in filtrates. T/C 07/14/24 pt reports resolution of URI symptoms. Low Na 129 06/2024, surgeon ordered repeat DOS PMFSH Active Problems Active Problems: All Active Problems AVF (arteriovenous fistula) (Acute) Cough (Acute) Cough (Acute) Hypertension (Acute) Chronic kidney disease, stage 3a (Acute) Renal transplant recipient (Acute) Past Medical History Medical History (Updated 07/17/24 @ 07:43 by Siena Pham RN) HTN (hypertension) History of stent insertion of renal artery Obstructive uropathy Proteinuria Hyperparathyroidism due to renal insufficiency Chronic kidney disease, stage 3a Family History Family History Father Heart disease Hypertension Surgical History Surgical History (Updated 07/17/24 @ 07:42 by Siena Pham RN) History of prostate surgery Kidney transplant status Social History Social History Alcohol intake: never Patient Tobacco Use Status: Current someday Tobacco user Tobacco use type: Pipe Use of substances other than those prescribed or required for medical reasons: Yes Substance Use Type Other:: edibles Substance Use Frequency: Occasionally Are you DNR?: No Advance Directives: No Advance Directives Information Provided: Yes Recently lost weight without trying: No Meds Allergies Allergy/AdvReac Type Severity Reaction Status Date / Time No Known Allergies Allergy Verified 07/17/24 07:45 Home Medications ?Medication ?Instructions ?Recorded ?Confirmed ?Last Taken ?Type aspirin 81 mg tablet,delayed 81 mg PO DAILY 06/21/23 07/17/24 07/17/24 06:15 History release cholecalciferol (vitamin D3) 50 50 mcg PO DAILY 06/21/23 07/17/24 07/17/24 06:15 History mcg (2,000 unit) capsule famotidine 20 mg tablet 20 mg PO DAILY 06/21/23 07/17/24 07/17/24 06:15 History finasteride 5 mg tablet 5 mg PO DAILY 06/21/23 07/17/24 07/17/24 06:15 History Documented by User: Siena Dubon DO 07/17/24 08:06 [facility] Past Medical History Medical History (Updated 07/17/24 @ 07:43 by Siena Pham RN) HTN (hypertension) History of stent insertion of renal artery Obstructive uropathy Proteinuria Hyperparathyroidism due to renal insufficiency Chronic kidney disease, stage 3a Family History Family History Father Heart disease Hypertension Family history of problems with anesthesia: No Surgical History Surgical History (Updated 07/17/24 @ 07:42 by Siena Pham RN) History of prostate surgery Kidney transplant status History of Problems with Anesthesia: No Social History Social History Alcohol intake: never Patient Tobacco Use Status: Current someday Tobacco user Tobacco use type: Pipe Use of substances other than those prescribed or required for medical reasons: Yes Substance Use Type Other:: edibles Substance Use Frequency: Occasionally Are you DNR?: No Advance Directives: No Advance Directives Information Provided: Yes Recently lost weight without trying: No Meds Allergies Allergy/AdvReac Type Severity Reaction Status Date / Time No Known Allergies Allergy Verified 07/17/24 07:45 Home Medications ?Medication ?Instructions ?Recorded ?Confirmed ?Last Taken ?Type aspirin 81 mg tablet,delayed 81 mg PO DAILY 06/21/23 07/17/24 07/17/24 06:15 History release cholecalciferol (vitamin D3) 50 50 mcg PO DAILY 06/21/23 07/17/24 07/17/24 06:15 History mcg (2,000 unit) capsule famotidine 20 mg tablet 20 mg PO DAILY 06/21/23 07/17/24 07/17/24 06:15 History finasteride 5 mg tablet 5 mg PO DAILY 06/21/23 07/17/24 07/17/24 06:15 History Exam Exam Date and Time: 07/17/24 0800 Height,Weight and Vital Signs: Height 5 ft 9 in Weight 63.503 kg Vital Signs Temperature 98.3 F 07/17/24 07:49 Pulse Rate 74 07/17/24 07:49 Respiratory Rate 15 07/17/24 07:49 Blood Pressure 152/57 H 07/17/24 07:49 Pulse Oximetry 100 07/17/24 07:49 Oxygen Delivery Method Room Air 07/17/24 07:49 Temperature 98.3 F 07/17/24 07:49 Pulse Rate 74 07/17/24 07:49 Respiratory Rate 15 07/17/24 07:49 Blood Pressure 152/57 H 07/17/24 07:49 Pulse Oximetry 100 07/17/24 07:49 Oxygen Delivery Method Room Air 07/17/24 07:49 Airway Mallampati Class: II TM Dist: >3cm Neck ROM: Full Loose/Missing/Broken Teeth: No (patient denies any loose or broken teeth) Heart: S1S2 Lungs: CTAB Assessment and Plan Assessment Anesthesia Assessment: Anesthesia Plan Discussed and Chart Reviewed Final Anesthetic Review Family History of Problems with Anesthesia: No History of Problems with Anesthesia: No NPO: Yes ASA Class: II Final Preanesthetic Review: No Changes in Pt Med Stat, Meds/Allgs Chart Reviewed, Consent Obtained/Reviewed and Anes Risks/Benef Reviewed Patient Risk: Low Procedure Risk: Low Anesthetic Plan Anesthetic Plan: GA and Agree w/ Assess. and Plan Disposition: Standard PACU
[2024-07-17 08:04] LABS: Anion Gap 16 (12-20); Blood Urea Nitrogen 31 mg/dL (9-16); Calcium 9.1 mg/dL (8.4-10.2); Carbon Dioxide 20 mmol/L (22-29); Chloride 106 mmol/L (96-108); Creatinine Clr Calc Pharmacy 30.6; Estimated Glomerular Filt Rate 39; Glucose Random 112 mg/dL (60-115); Potassium 5.3 mmol/L (3.3-5.1); Sodium 137 mmol/L (135-145)
[2024-07-17] MEDS: Lactated Ringers 1,000 ML 50 ML IVCONT (08:04)
--- NOTE | 2024-07-17 08:08 | PC.NURSE ---
anesthesia made aware of rythym with right bundle branch block, no ekg needed. potassium 5.3 and aware also.
--- NOTE | 2024-07-17 08:56 | MHC.SHP ---
Pre-Procedural Eval Section A - 24 Hr Update-Section A only Date of Service: 07/17/24 The patient is an INPATIENT: No Changes since office visit: Yes Patient answered all questions The patient has been examined within 24 hours of the surgical procedure. The History & Physical has been completed within 30 days and I have reviewed it.: Yes Section B - Complete if H&P > 30 days Chief Complaint: Chronic kidney disease, stage 3a Allergies: Allergies Allergy/AdvReac Type Severity Reaction Status Date / Time No Known Allergies Allergy Verified 07/17/24 07:45 Plan I have reviewed the history and physical and performed a pertinent physical examination on my patient. No changes have occurred unless specified. Time Spent With Patient Time: Total time managing care of this patient today ____ minutes.
[2024-07-17 10:12] VITALS: BP 131/52; PULSE 66; RESP 18; TEMP 36.3; O2SAT 100
[2024-07-17 10:15] VITALS: BP 128/48; PULSE 68; RESP 16; O2SAT 99
--- NOTE | 2024-07-17 10:19 | W.PM.OPN ---
Operative Note Operative Note Date of Service: 07/17/24 Narrative: Operative note by [facility] Preoperative diagnosis: Chronic kidney disease Postoperative diagnosis: Same Procedure: Right upper extremity fistula ligation Surgeon:Matthew Marroquin M.D. Powertrain Engineer: Charlotte CROUCH Anesthesia: Dr. Pabon general Specimens: None Drains: None Estimated blood loss: Minimal Indications: Pleasant 79-year-old gentleman who has a history of chronic renal insufficiency who actually had a right upper extremity fistula placed several years prior. He had subsequently undergone renal transplant and has no longer required dialysis for few years now his right upper extremity became significantly swollen. There was concern of central venous stenosis. He now presents for fistula ligation. The patient has signed the informed consent after reviewing risks, complications, benefits, and alternatives previously discussed with the patient. The patient was given the opportunity to ask any additional questions or voice any concerns. All questions were answered to the patient's satisfaction. Procedure in detail: Patient was brought to the operating room prior to which a time-out was called for patient identification site verification. Right upper extremity was prepped and draped in standard surgical fashion. This was a brachiocephalic fistula and just above the arteriovenous anastomosis we made a proximally a 4 cm incision just above the fistula. We dissected around the fistula and we were able to encircle this and we placed a silastic loop. Once we did this we tied down with 2 sequential ties of an 0 silk tie. Once this was all done we went a little bit more proximally to the mid fistula there appeared to be an area fed by a collateral. We in a similar fashion made about a 4 cm incision. We were able to get down and identify the branch. This was clipped off with surgical clips and we eventually dissected around the fistula. We were able to get around this with a silastic loop once again. And in a similar fashion we used 0 silk ties to sequentially tied this area down. Once this was done the flow to the fistula seem to have stopped. We then irrigated the wounds deep layer was reapproximated using 3-0 poly Sorb and finally skin with a 4-0 Monocryl in a subcuticular manner. Exofin was used as a sterile dressing. At the end the case sponge instrument counts were correct. Patient had a palpable radial and ulnar pulse as well. This note is constructed using voice recognition software. While every effort has been made to ensure accuracy, export traffic department manager errors may have been included. Thank you for allowing me to participate in the care of your patient. Yours sincerely, Matthew Marroquin MD, FACS, R.P.V.I.
[2024-07-17 10:20] VITALS: BP 128/50; PULSE 68; RESP 16; O2SAT 99
[2024-07-17 10:25] VITALS: BP 137/56; PULSE 70; RESP 16; O2SAT 98
[2024-07-17 10:38] VITALS: BP 140/55; PULSE 70; RESP 16; TEMP 36.3; O2SAT 98
--- NOTE | 2024-07-17 11:41 | PC.NURSE ---
THIS RN CALLED PATIENT AND LEFT A MESSAGE STATING NO ACTIVITY OR HEAVY LIFTING FOR [address] OZUNA.
== END 2024-07-17 11:18 | disposition home or self-care (01) ==
PROVIDERS: Visit Provider Surgery Vascular Surgery
PROC: (CPT 37607; principal; 2024-07-17 08:00)
DX: I77.0 Arteriovenous fistula, acquired (principal); I12.9 Hypertensive chronic kidney disease with stage 1 through stage 4 chronic kidney disease, or unspecified chronic kidney disease; F17.290 Nicotine dependence, other tobacco product, uncomplicated; N18.31 Chronic kidney disease, stage 3a; Z94.0 Kidney transplant status
CPT/HCPCS: 37607; 36415; 80048; 85027; A4649; J0131; J0690; J1100; J1644; J2003; J2405; J2704; J2795; J3010

== ENCOUNTER → 2024-07-17 07:15 | Outpatient (BNV) | payer MEDICARE, SELFPAY | PROVIDERS: Visit Provider Surgery Vascular Surgery | DX: N18.31 Chronic kidney disease, stage 3a (principal); I77.0 Arteriovenous fistula, acquired | CPT/HCPCS: 37607 ==

== ENCOUNTER 2024-07-21 07:30 | Outpatient (REF) | payer MEDICARE, SELFPAY ==
--- NOTE | ~2024-07-21 | CT_ITS ---
EXAMINATION: CT CHEST WITHOUT IV CONTRAST. CLINICAL INFORMATION: R05.1 - Acute cough COMPARISON: No prior CT available for comparison. TECHNIQUE: Multidetector volumetric CT imaging of the chest was done. Axial MIP volume rendering provided. Sagittal and coronal reformatted images were obtained. This CT examination was performed using dose optimization techniques as appropriate, variously including the following: *Automated exposure control *Adjustment of mA and/or kV according to patient size (this includes techniques or standardized protocols for targeted exams where dose is matched to indication/reason for exam; i.e. extremities or head) *Use of iterative reconstruction technique CONTRAST: Noncontrasted study. DLP: 195 mGy-cm FINDINGS: INVESTMENT EXECUTIVE: LINES/TUBES: Optomechanical Engineer reviewed, no lines. LUNGS: Lung parenchyma: No evidence of significant interstitial disease. Lung nodules/masses: - No evidence of neoplasm. No lung mass or suspicious nodules, there are scattered tiny micronodules, measuring 3 mm or less, nonspecific, . (Rondon images). AIRWAYS: Trachea and bronchi are normal. PLEURA: No pleural effusion or pneumothorax. MEDIASTINUM AND SYLVIE: No mediastinal, hilar or axillary lymphadenopathy. No mediastinal mass. VESSELS: HEART AND PERICARDIUM: Borderline aneurysmal dilatation of ascending aorta measure up to 4 cm. Heart is normal in size. No pericardial effusion. There are heavy trivessel coronary calcifications. Pulmonary arteries are normal in size. LOWER NECK, AXILLA: The visualized thyroid gland is unremarkable. No axillary mass or adenopathy. VISUALIZED ABDOMEN: Nonobstructing stone 4 mm upper calyx right kidney, small renal cysts not fully included likely benign, no follow-up imaging is indicated. CHEST WALL AND BONES: There is engorgement of right supraclavicular right axillary vein probably subclavian or superficial vein, cannot rule out underlying vascular anomalies including thrombosis. This may require further investigation with follow-up ultrasound. The visualized bony thorax is within normal limits. CT/CT chest wo IV con IMPRESSION: 1. No suspicious lung mass, there are scattered tiny micronodules measuring 3 mm or less. 2. Heavy trivessel coronary calcification. 3. Borderline aneurysmal dilatation of ascending aorta measure up to 4 cm. 4. There is engorgement of right supraclavicular right axillary vein probably subclavian or superficial vein, cannot rule out underlying vascular anomalies including thrombosis. This may require further investigation more ADVANCED VASCULAR IMAGING STARTING WITH VENOUS DOPPLER. 5. Nonobstructing stone upper calyx right kidney. According to the UPDATED 2017 Fleischner Society recommendations, the advised follow-up imaging for nodules <6mm in the upper lobes is not necessarily required in low-risk patients. In high-risk patients with a nodule in the upper lobe and/or demonstrating suspicious morphology, an optional CT follow-up at 12 months may be obtained. If stable at 12 months, no further follow-up is recommended. (Referring physician staff is being called, by physician staff assistance, to be alerted of the above critical findings and recommendations.) A J 07/22/2024 11:31 AM REFRIGERATION PLANT OPERATOR Electronically signed by: Kendrick Rendon MD 07/22/2024 12:32 PM [facility]
== END 2024-07-21 07:31 | disposition home or self-care (01) ==
LOC: HO.CT 07:30
PROVIDERS: Visit Provider Internal Medicine Nephrology
DX: R05.1 Acute cough (principal)
CPT/HCPCS: 71250; 99212

== ENCOUNTER 2024-07-21 08:45 | Outpatient (AMB) | payer MEDICARE, SELFPAY ==
--- NOTE | 2024-07-21 08:26 | MHC.OFFVIS ---
Intake Visit Reasons: Fistula check Intake Note: Follow up add-on for Right UE swelling s/p Right UE fistula Ligation 07/17/24. Right UE has swollen up more over the past few days, does have severe Right UE swelling and states he has been elevating as much as he can tolerate. Elevation is not helping. Accompanied by: Spouse Allergies No Known Allergies Allergy (Verified 07/21/24 08:32) HPI HPI Fistula check: Details: Avery is presenting today as a walk up for concerns of swelling, pain, and redness of the right upper extremity s/p AV fistula ligation on Wednesday. He states that he was doing well Wednesday and Wednesday but by Wednesday the swelling came back, worse, as well as warmth and redness throughout the arm. He states the swelling is down to his fingertips and to just above the AV fistula site. He denies any swelling above the fistula or into his chest wall; he states that actually looks better. He denies any fever/chills/body aches. He states he is able to move his arm around and denies any difficulty in range of motion. He has been elevating his arm with little relief. He denies any numbness or tingling in his fingers. 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 insufficiency Chronic kidney disease, stage 3a Surgical History History of prostate surgery Kidney transplant status Family History Father Heart disease Hypertension Social History Alcohol intake: never Patient Tobacco Use Status: Current someday Tobacco user Tobacco use type: Pipe Review of Systems Const Reports as per HPI and Denies weakness ENT Reports Normal hearing present and Denies dizziness Card Reports as per HPI, Denies chest pain, Denies chest pain at rest, Denies chest pain with activity, Denies dyspnea and Denies dyspnea on exertion Resp Reports as per HPI, Denies cough, Denies dyspnea and Denies dyspnea on exertion GI Reports as per HPI, Denies abdominal pain, Denies nausea and Denies vomiting Musc Denies numbness Skin/Breast Reports as per HPI, Denies erythema and Denies wounds Neuro Reports Normal hearing present, Denies dizziness, Denies numbness, Denies Sensory deficit (Neuro) and Denies weakness Psych Reports no additional complaints Endo Reports no additional complaints Physical Exam Const General: healthy appearing and no acute distress Orientation/consciousness: patient oriented x3 HEENT Head: Yes normal to inspection Ears: hearing grossly normal bilaterally Mouth: Normal oral and palatal mucosa present Resp Effort & Inspection: normal respiratory effort and able to speak in complete sentences Auscultation: clear to auscultation bilaterally Cardio Jugular venous distension: no JVD Rate: regular rate Rhythm: regular rhythm Heart sounds: S1 normal heart sound present and S2 normal heart sound present Bruits: no abdominal aortic bruits, no carotid bruits, no femoral bruits and no renal bruits Peripheral pulses: Peripheral pulses 2+ throughout GI Inspection: Yes normal to inspection Palpation (GI): No Abdominal aortic bruit present Skin General skin exam: no rashes or lesions noted Wounds: no wounds Hair: normal Neuro General: patient oriented x3 Cranial nerves: Yes Normal hearing present Cognition (Neuro): normal cognition Gait exam (Neuro): Normal gait present Motor exam (neuro): 5/5 motor strength present throughout Sensory Exam: No Sensory deficit (Neuro) Extrem Other: RUE: +2 edema noted from above the fistula to the fingertips. No edema noted above the fistula. No weeping or open sores/wounds noted. Palpable radial pulse. Strength 5/5. Erythema noted around the elbow, circumferentially to the top of the fistula. Palpable thrill felt. Warmth felt in the same areas of the erythema. Incision sites are C/D/I. General: Yes normal to inspection, Yes full ROM, Yes capillary refill normal and Yes normal gait Assessment & Plan Assessment & Plan (1) AVF (arteriovenous fistula): Code(s): I77.0 - Arteriovenous fistula, acquired Category: Medical Plan: Avery is presenting today as a walk-in for concerns of increasing edema with warmth and redness of his right upper extremity, starting Wednesday. He is s/p AV fistula ligation on Wednesday. He states he did well Wednesday and Wednesday but Wednesday started with swelling that has been increasing. He just recently noticed the warmth and redness. We have ordered a stat US (not able to be done until 1430 today in [place]) to r/o a thrombus. Due to the redness and warmth we will treat him for cellulitis with Keflex bid for 10d. I discussed the importance of taking a probiotic/yogurt daily as well for GI health. We went with Keflex due to the pt just having a course of abx including Doxy for pneumonia about a month ago. We did wrap his arm from the axilla to his fingers for the edema and will have him continue with the wraps for the weekend. We applied 2 abd pads over the incision sites. We discussed the red flag s/s to present to the ER including shortness of breath, CP, diff breathing, increased redness/warmth/edema, or any changes in range of motion/movement of the arm. We will await the results of the US this afternoon and will follow up with him on Wednesday in the office. Orders: Orders US venous duplex UE RT Today I77.0 - Arteriovenous fistula, acquired Medications: New cephalexin 500 mg PO BID 20 caps 0RF Coding Level of Care Code Global (93202) Diagnoses AVF (arteriovenous fistula) I77.0
== END 2024-07-21 09:05 | disposition home or self-care (01) ==
PROVIDERS: Visit Provider Physician Assistant Surgical
DX: I77.0 Arteriovenous fistula, acquired (principal)
CPT/HCPCS: 99024

== ENCOUNTER 2024-07-21 14:15 | Outpatient (REF) | payer MEDICARE, SELFPAY ==
--- NOTE | ~2024-07-21 | US_ITS ---
EXAMINATION: US TRIPLEX UPPER EXTREMITY, RIGHT CLINICAL INFORMATION: Fistula ligation COMPARISON: None available. TECHNIQUE: Color-flow triplex imaging with spectral analysis and compression Doppler was performed on the right upper extremity. FINDINGS: There is acute occlusive thrombus in the right subclavian vein. The visualized portion of the proximal arm fistula is also thrombosed. Diffuse subcutaneous edema. The brachial, basilic, radial, and ulnar veins are patent and compressible. US/US venous duplex UE RT IMPRESSION: 1. Acute occlusive thrombus in the right subclavian vein. 2. Thrombosed proximal arm fistula. Preliminary results were discussed with Charlotte Lofton at 3:00 PM. Electronically signed by: Radha Morfin MD 07/21/2024 03:48 PM [facility]
== END 2024-07-21 14:16 | disposition home or self-care (01) ==
LOC: HO.HMGCX 14:15
PROVIDERS: Visit Provider Surgery Vascular Surgery
DX: I82.B11 Acute embolism and thrombosis of right subclavian vein (principal); I77.0 Arteriovenous fistula, acquired
CPT/HCPCS: 93971

== ENCOUNTER 2024-07-24 09:54 | Outpatient (AMB) | payer MEDICARE, SELFPAY ==
--- NOTE | 2024-07-24 10:01 | A.OFFVIS_ITS ---
Intake Visit Reasons: Fistula ligation follow up Intake Note: follow up UE Swelling s/p fistula ligation 07/17/24. Pt still has severe swelling, states he is more drowsy than usual. Started Abx's and blood thinner Accompanied by: Spouse Allergies No Known Allergies Allergy (Verified 07/24/24 10:03) HPI HPI Fistula ligation follow up: Details: Avery is presenting today for a follow up with his . He presented on Wednesday with increased redness, swelling, and discomfort s/p AV fistula ligation last Wednesday. We ordered a stat US, which was performed later in that day. There was an occlusive thrombus found in the right subclavian vein with thrombosed proximal arm fistula. I discussed the results with the US tech and then prescribed the Eliquis starter pack, with strict instructions for the pt to start the first dose Wednesday afternoon. The pt continues to endorse swelling of the right arm to the fingers. There is some increased bruising around the upper arm; the pt states he believes that is from the US Wednesday. He denies any shortness of breath/diff breathing/CP. He states he has been having some numbness and tingling intermittently in his fingers/hand. He has been elevating his arm on a table with pillow. He also states he had a cramp in his right thumb last night which was painful; he states it is better this morning. [facility] Medical History HTN (hypertension) History of stent insertion of renal artery Obstructive uropathy Proteinuria Hyperparathyroidism due to renal insufficiency Chronic kidney disease, stage 3a Surgical History History of prostate surgery Kidney transplant status Family History Father Heart disease Hypertension Social History Alcohol intake: never Patient Tobacco Use Status: Current someday Tobacco user Tobacco use type: Pipe Review of Systems Const Reports as per HPI and Denies weakness ENT Reports Normal hearing present and Denies dizziness Card Reports as per HPI, Denies chest pain, Denies chest pain at rest, Denies chest pain with activity, Denies dyspnea and Denies dyspnea on exertion Resp Reports as per HPI, Denies cough, Denies dyspnea and Denies dyspnea on exertion GI Reports as per HPI, Denies abdominal pain, Denies nausea and Denies vomiting Musc Denies numbness Skin/Breast Reports as per HPI, Denies erythema and Denies wounds Neuro Reports Normal hearing present, Denies dizziness, Denies numbness, Denies Sensory deficit (Neuro) and Denies weakness Psych Reports no additional complaints Endo Reports no additional complaints Physical Exam Const General: healthy appearing and no acute distress Orientation/consciousness: patient oriented x3 HEENT Head: Yes normal to inspection Ears: hearing grossly normal bilaterally Mouth: Normal oral and palatal mucosa present Resp Effort & Inspection: normal respiratory effort and able to speak in complete sentences Auscultation: clear to auscultation bilaterally Cardio Jugular venous distension: no JVD Rate: regular rate Rhythm: regular rhythm Heart sounds: S1 normal heart sound present and S2 normal heart sound present Bruits: no abdominal aortic bruits, no carotid bruits, no femoral bruits and no renal bruits Peripheral pulses: Peripheral pulses 2+ throughout GI Inspection: Yes normal to inspection Palpation (GI): No Abdominal aortic bruit present Skin General skin exam: no rashes or lesions noted Wounds: no wounds Hair: normal Neuro General: patient oriented x3 Cranial nerves: Yes Normal hearing present Cognition (Neuro): normal cognition Gait exam (Neuro): Normal gait present Motor exam (neuro): 5/5 motor strength present throughout Sensory Exam: No Sensory deficit (Neuro) Extrem Other: RUE: +2 edema noted from above the fistula to the fingertips. Bruising and edema noted above the fistula. No weeping or open sores/wounds noted. Palpable radial pulse. 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 Erythema noted around the elbow, circumferentially to the top of the fistula. Palpable thrill felt. Warmth felt in the same areas of the erythema. General: Yes normal to inspection, Yes full ROM, Yes capillary refill normal and Yes normal gait Results Reviewed Results Reviewed: RUE Arterial Duplex, 07/21/24: FINDINGS: There is acute occlusive thrombus in the right subclavian vein. The visualized portion of the proximal arm fistula is also thrombosed. Diffuse subcutaneous edema. The brachial, basilic, radial, and ulnar veins are patent and compressible. US/US venous duplex UE RT IMPRESSION: 1. Acute occlusive thrombus in the right subclavian vein. 2. Thrombosed proximal arm fistula. Assessment & Plan Assessment & Plan (1) DVT (deep venous thrombosis): Code(s): I82.409 - Acute embolism and thrombosis of unspecified deep veins of unspecified lower extremity Category: Medical Qualifiers: DVT location: upper extremity Affected thrombotic vein of extremity: other upper extremity vein Chronicity: acute Laterality: right Qualified Code(s): I82.621 - Acute embolism and thrombosis of deep veins of right upper extremity Plan: Avery is presenting today as a follow up to Wednesday, where US revealed a DVT in the right subclavian vein. He initially presented to our office Wednesday morning with increased swelling, pain, and redness over the site of the AV fistula. We started him on abx as well as ordering a stat US, which was performed that afternoon. I was notified by the [employer] about the finding of the occlusive thrombus. I sent in a prescription for Eliquis, 10mg bid for 7d and then 10mg once daily after that. Avery is returning today for a follow up. He continues with swelling. He denies any other complaints. He does have increased bruising around the fistula site; he states he thinks it is due to the US. He denies any shortness of breath/diff breathing/CP. We discussed to continue on both the abx (due to ongoing redness and warmth, likely due to the DVT but will continue the Abx for ? of infection) and Eliquis. We had a lengthy discussion about possible complications from being on Eliquis including increased bleeding/bruising with minor injuries/cuts. We also discussed that if he has a fall, and in particular, hits his head, he must be seen in the ER. 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 We discussed to continue with elevation; however, to keep the elbow/arm in line to prevent any nerve injury/damage (could be causation for numbness/tingling he has been feeling). We discussed to take rests/breaks from the elevation as well, and to allow his arm to dangle to prevent muscle cramping. We advised him to rest as well. We discussed no heavy lifting/increased physical activity. He is left hand dominant. We will have him follow up with Dr Marroquin next week, an appt already scheduled. We will also order a follow up US, just prior to the appt. If there are any questions or concerns, please do not hesitate to reach out to us. I did discuss with them that if there are any concerns we can have them come back before next Wednesday. Orders: Orders US arterial duplex UE RT 08/01/24 I82.409 - Acute embolism and thrombosis of unspecified deep veins of unspecified lower extremity Coding Level of Care Code Global (81895) Diagnoses Acute deep vein thrombosis (DVT) of other vein of right upper extremity I82.621 DVT location: upper extremity Affected thrombotic vein of extremity: other upper extremity vein Chronicity: acute Laterality: right
== END 2024-07-24 10:34 | disposition home or self-care (01) ==
PROVIDERS: Visit Provider Physician Assistant Surgical
DX: I82.621 Acute embolism and thrombosis of deep veins of right upper extremity (principal)
CPT/HCPCS: 99024

== ENCOUNTER → 2024-07-24 09:54 | Outpatient (BNVA) | payer MEDICARE, SELFPAY | PROVIDERS: Visit Provider Physician Assistant Surgical | DX: I82.621 Acute embolism and thrombosis of deep veins of right upper extremity (principal) | CPT/HCPCS: 99212 ==

== ENCOUNTER 2024-08-01 10:47 | Outpatient (REF) | payer MEDICARE, SELFPAY ==
--- NOTE | ~2024-08-01 | US_ITS ---
CLINICAL HISTORY: I82.409 - Acute embolism and thrombosis of unspecified deep veins of uns... Venous duplex ultrasound right upper extremity Comparison: US/[place]/SR - US VENOUS DUPLEX UE RT - 07/21/24 14:24 EST Findings: Thrombus redemonstrated at the right subclavian vein, limiting flow at this site on color and spectral Doppler imaging. The remainder of the visualized right upper extremity deep venous system appears patent on color and spectral Doppler imaging. There appears to be thrombus involving a right upper extremity fistula with thrombus in what appears to be the outflow vein of the fistula. The right basilic vein appears patent on color and spectral Doppler imaging. A normal right cephalic vein is not clearly visualized on this examination, with varicosities in the soft tissues near the expected location of the right cephalic vein. IMPRESSION: 1. Positive for deep venous thrombosis at the right subclavian vein, similar in appearance as compared to the 07/21/2024 examination. No extension of the thrombus into the right axillary vein demonstrated. 2 right upper extremity fistula redemonstrated with thrombus in what appears to be the outflow vein. Again, a similar finding was present on the prior exam.. This document has been electronically signed by: Ras Mejia MD on 08/01/2024 21:25:42
== END 2024-08-01 10:48 | disposition home or self-care (01) ==
LOC: HO.US 10:47
PROVIDERS: Visit Provider Surgery Vascular Surgery
DX: I82.621 Acute embolism and thrombosis of deep veins of right upper extremity (principal); I77.0 Arteriovenous fistula, acquired; N18.31 Chronic kidney disease, stage 3a; Z79.01 Long term (current) use of anticoagulants
CPT/HCPCS: 93971; 99212

== ENCOUNTER → 2024-08-01 10:48 | Outpatient (BNV) | payer MEDICARE, SELFPAY | PROVIDERS: Visit Provider Radiology Diagnostic Radiology | DX: I82.621 Acute embolism and thrombosis of deep veins of right upper extremity (principal) | CPT/HCPCS: 93971 ==

== ENCOUNTER 2024-08-01 11:45 | Outpatient (AMB) | payer MEDICARE, SELFPAY ==
--- NOTE | 2024-08-01 11:56 | A.OFFVIS_ITS ---
Intake Visit Reasons: 2 week follow s/p R arm fistula ligation 07/17/24 Intake Note: follow up thrombectomy and Right UE swelling w/ DVT. Had repeat US today. Taking blood thinner Accompanied by: Spouse Allergies No Known Allergies Allergy (Verified 08/01/24 11:59) HPI HPI 2 week follow s/p R arm fistula ligation 07/17/24: Details: Very pleasant 79-year-old gentleman presents for routine follow-up status post right upper extremity fistula ligation. Postprocedure he developed significant thrombophlebitis and clot extending up into the subclavian. Was subsequently started on Eliquis. In general he reports his arm is doing somewhat better. He no longer has any serous drainage. Color has improved in the arm. It is still quite edematous but he does have good motor and sensation at the current time [facility] Medical History HTN (hypertension) History of stent insertion of renal artery Obstructive uropathy Proteinuria Hyperparathyroidism due to renal insufficiency Chronic kidney disease, stage 3a Surgical History History of prostate surgery Kidney transplant status Family History Father Heart disease Hypertension Social History Alcohol intake: never Patient Tobacco Use Status: Current someday Tobacco user Tobacco use type: Pipe Review of Systems Const All systems reviewed & are unremarkable except as noted in HPI and below Reports no additional complaints ENT Reports Normal hearing present Card Denies chest pain, Denies chest pain at rest, Denies chest pain with activity and Denies pedal edema Resp Denies cough GI Denies abdominal pain Musc Denies abnormal gait, Denies muscle cramps and Denies radiating pain into limb Skin/Breast Denies skin ulcer and Denies wounds Neuro Reports Normal hearing present and Denies abnormal gait Psych Reports no additional complaints Physical Exam Const General: cooperative, healthy appearing and comfortable Orientation/consciousness: oriented to person, oriented to place and oriented to time HEENT Head: Yes normal to inspection Neck Neck: Yes normal visual inspection Carotids: no bruits Chest Chest palpation & inspection: normal inspection of the chest Resp Effort & Inspection: normal respiratory effort and able to speak in complete sentences Auscultation: clear to auscultation bilaterally, no crackles, no rales, no rhonchi and no wheezes Cardio Rate: regular rate Rhythm: regular rhythm Heart sounds: S1 normal heart sound present and S2 normal heart sound present Bruits: no carotid bruits Peripheral pulses: Peripheral pulses 2+ throughout GI Inspection: Yes normal to inspection Skin Wounds: no wounds Hair: normal Neuro General: oriented to person, oriented to place and oriented to time Cranial nerves: Yes CN's II-XII intact bilaterally and Yes Normal hearing present Cognition (Neuro): normal cognition Motor exam (neuro): 5/5 motor strength present throughout Extrem Other: venous exam: Right arm +2 edema. Palpable brachial radial ulnar pulses. No open ulcers. Phlebitic old fistula. General: No clubbing, No cyanosis and No edema Psych Appearance: grossly normal Mental Status: mental status grossly normal Speech and movement: Normal speech and movement present Results Reviewed Results Reviewed: Ultrasound from 07/21 and 1231 were reviewed with clot extension to the subclavian Assessment & Plan Assessment & Plan (1) DVT (deep venous thrombosis): Code(s): I82.409 - Acute embolism and thrombosis of unspecified deep veins of unspecified lower extremity Category: Medical Qualifiers: DVT location: upper extremity Affected thrombotic vein of extremity: other upper extremity vein Chronicity: acute Laterality: right Qualified Code(s): I82.621 - Acute embolism and thrombosis of deep veins of right upper extremity Plan: In short patient has developed clot extension from ligation of his fistula. In general his arm does appear to be doing better. We will continue with Eliquis. We did discuss routine conservative measures including arm elevation and compressive wrap. Will follow up with us in approximately 2 weeks time. We will continue with his Eliquis for now. Medications: New apixaban (Eliquis) 5 mg PO BID 60 tabs 2RF Coding Level of Care Code Est Pt Level 4 (65257) Diagnoses Acute deep vein thrombosis (DVT) of other vein of right upper extremity I82.621 DVT location: upper extremity Affected thrombotic vein of extremity: other upper extremity vein Chronicity: acute Laterality: right
== END 2024-08-01 12:55 | disposition home or self-care (01) ==
LOC: HO.HVS 11:45
PROVIDERS: Visit Provider Surgery Vascular Surgery
DX: I82.621 Acute embolism and thrombosis of deep veins of right upper extremity (principal)
CPT/HCPCS: 99024

== ENCOUNTER 2024-08-10 09:42 | Outpatient (AMB) | payer MEDICARE, SELFPAY ==
--- NOTE | 2024-08-10 10:21 | HO.NEPHOV ---
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 He had donor renal transplant on 01/26/2014 in [facility] in [place]. 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 He had a follow-up transplant renal artery ultrasound which was negative for any artery stenosis. He monitors his blood pressure readings closely at home. He is not on ACEI now. He continues to self intermittently catheterize himself 4 times a day. He has not had any hematuria, urinary tract infection. He does not have any new skin rashes, joint swellings, fever, suprapubic pain, pain over his renal transplant, nausea, vomiting, diarrhea, shortness of breath, proximal nocturnal dyspnea, orthopnea or pedal edema. His weight has been steady and has not had any night sweats. He avoids any [id number] medications. 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 His PSA was OK with urologist( Alissa). [facility] Medical History HTN (hypertension) History of stent insertion of renal artery Obstructive uropathy Proteinuria Hyperparathyroidism due to renal insufficiency Chronic kidney disease, stage 3a Surgical History History of prostate surgery Kidney transplant status Family History Father Heart disease Hypertension Social History Alcohol intake: never Patient Tobacco Use Status: Current someday Tobacco user Tobacco use type: Pipe Review of Systems Const All systems reviewed & are unremarkable except as noted in HPI and below Physical Exam Vital Signs: Last Vital Signs BP 144/60 H 08/10/24 10:23 BMI result Body Mass Index 21.2 Const General: comfortable and no acute distress Orientation/consciousness: patient oriented x3 HEENT Head: Yes normocephalic Mouth: Normal oral and palatal mucosa present Eyes EOM: EOMs intact bilaterally Neck Neck: Yes supple Resp Auscultation: clear to auscultation bilaterally Cardio Jugular venous distension: no JVD Rate: regular rate GI Palpation (GI): Soft to palpation Auscultation: normal bowel sounds Neuro General: patient oriented x3 and moves all extremities Assessment & Plan Assessment & Plan (1) Renal transplant recipient: Code(s): Z94.0 - Kidney transplant status Category: Surgical (2) Hypertension: Code(s): I10 - Essential (primary) hypertension Category: Medical Qualifiers: Hypertension type: renovascular hypertension Qualified Code(s): I15.0 - Renovascular hypertension (3) Chronic kidney disease, stage 3a: Code(s): N18.31 - Chronic kidney disease, stage 3a Category: Medical Plan Avery has renal transplant since 26 January 2014 ( [facility] ). His transplant function had been stable . He has not had any significant proteinuria. His lisinopril is on hold since he had the pneumonia. He had a transplant renal artery stenosis and underwent angioplasty and stenting of his renal artery. I shall repeat Doppler renal tx artery with time. He monitors his blood pressure closely at home and has been at goal. He is on a low-sodium diet. He has not had any urinary infections. He intermittently self-catheterize 4 times a day. He has no clinical symptoms or signs of or tacrolimus toxicity. I reduced his tacrolimus to 2 mg bid. He follows up with electric furnace operator very closely. He should remain well hydrated. All his questions were answered. Orders: Orders Creatinine 2 Months I15.0 - Renovascular hypertension, N18.31 - Chronic kidney disease, stage 3a, Z94.0 - Kidney transplant status Electrolytes 2 Months I15.0 - Renovascular hypertension, N18.31 - Chronic kidney disease, stage 3a, Z94.0 - Kidney transplant status Tacrolimus Prograf 2 Months I15.0 - Renovascular hypertension, N18.31 - Chronic kidney disease, stage 3a, Z94.0 - Kidney transplant status Complete Blood Count Auto Diff 2 Months I15.0 - Renovascular hypertension, N18.31 - Chronic kidney disease, stage 3a, Z94.0 - Kidney transplant status Blood Urea Nitrogen 2 Months I15.0 - Renovascular hypertension, N18.31 - Chronic kidney disease, stage 3a, Z94.0 - Kidney transplant status Coding Level of Care Code Est Pt Level 4 (08131) Diagnoses Renal transplant recipient Z94.0 Renovascular hypertension I15.0 Hypertension type: renovascular hypertension Chronic kidney disease, stage 3a N18.31
[2024-08-10 10:23] VITALS: BP 144/60; BMI 21.2
== END 2024-08-10 10:52 | disposition home or self-care (01) ==
PROVIDERS: Visit Provider Internal Medicine Nephrology
DX: Z94.0 Kidney transplant status (principal); I15.0 Renovascular hypertension; N18.31 Chronic kidney disease, stage 3a
CPT/HCPCS: 99214

== ENCOUNTER → 2024-08-10 09:42 | Outpatient (BNVA) | payer MEDICARE, SELFPAY | PROVIDERS: Visit Provider Internal Medicine Nephrology | DX: I15.0 Renovascular hypertension (principal); N18.31 Chronic kidney disease, stage 3a; Z94.0 Kidney transplant status | CPT/HCPCS: 99212 ==

== ENCOUNTER 2024-08-15 09:55 | Outpatient (AMB) | payer MEDICARE, SELFPAY ==
--- NOTE | 2024-08-15 09:57 | MHC.OFFVIS ---
Intake Visit Reasons: 2 week follow up Right UE swelling Intake Note: Patient presents for 2 week follow up right upper extremity swelling. States his arm is achy but not painful . States his movement is better. Accompanied by: Self / Same As Patient Allergies No Known Allergies Allergy (Verified 08/15/24 09:58) HPI HPI 2 week follow up Right UE swelling: Details: Very pleasant 79-year-old gentleman presents for routine follow-up status post right upper extremity fistula ligation. Postprocedure he developed significant superficial thrombophlebitis with clot extending up into the subclavian. He was subsequently started on Eliquis. He presents back today and reports that the swelling has decreased significantly. PT still does have a right swollen arm. There is no longer serous drainage. He does have improved range of motion at the current time [facility] Medical History HTN (hypertension) History of stent insertion of renal artery Obstructive uropathy Proteinuria Hyperparathyroidism due to renal insufficiency Chronic kidney disease, stage 3a Surgical History History of prostate surgery Kidney transplant status Family History Father Heart disease Hypertension Social History Alcohol intake: never Patient Tobacco Use Status: Current someday Tobacco user Tobacco use type: Pipe Review of Systems Const All systems reviewed & are unremarkable except as noted in HPI and below Reports no additional complaints ENT Reports Normal hearing present Card Denies chest pain, Denies chest pain at rest, Denies chest pain with activity and Denies pedal edema Resp Denies cough GI Denies abdominal pain Musc Denies abnormal gait, Denies muscle cramps and Denies radiating pain into limb Skin/Breast Denies skin ulcer and Denies wounds Neuro Reports Normal hearing present and Denies abnormal gait Psych Reports no additional complaints Physical Exam Const General: cooperative, healthy appearing and comfortable Orientation/consciousness: oriented to person, oriented to place and oriented to time HEENT Head: Yes normal to inspection Neck Neck: Yes normal visual inspection Carotids: no bruits Chest Chest palpation & inspection: normal inspection of the chest Resp Effort & Inspection: normal respiratory effort and able to speak in complete sentences Auscultation: clear to auscultation bilaterally, no crackles, no rales, no rhonchi and no wheezes Cardio Rate: regular rate Rhythm: regular rhythm Heart sounds: S1 normal heart sound present and S2 normal heart sound present Bruits: no carotid bruits Peripheral pulses: Peripheral pulses 2+ throughout GI Inspection: Yes normal to inspection Skin Wounds: no wounds Hair: normal Neuro General: oriented to person, oriented to place and oriented to time Cranial nerves: Yes CN's II-XII intact bilaterally and Yes Normal hearing present Cognition (Neuro): normal cognition Motor exam (neuro): 5/5 motor strength present throughout Extrem Other: Right arm +2 edema palpable brachial, radial, ulnar pulses. No open ulcers. Prior fistula ligation site appears to have decreased in size overall but still thrombosed and large aneurysmal portions. General: No clubbing, No cyanosis and No edema Psych Appearance: grossly normal Mental Status: mental status grossly normal Speech and movement: Normal speech and movement present Assessment & Plan Assessment & Plan (1) AVF (arteriovenous fistula): Code(s): I77.0 - Arteriovenous fistula, acquired Category: Medical Plan: Avery appears to be doing relatively well with fistula ligation. In general it does appear to be improving. I would like the edema to come down somewhat more prior to any further intervention. At the current time we will keep him on the Eliquis and he will follow up with us in approximately 2 weeks time. Thank you for allowing us to assist in his care. If there are any questions or concerns please do not hesitate to contact us. Coding Level of Care Code Est Pt Level 3 (72695) Complex EM visit Add On G2211 Diagnoses AVF (arteriovenous fistula) I77.0
== END 2024-08-15 10:18 | disposition home or self-care (01) ==
PROVIDERS: Visit Provider Surgery Vascular Surgery
DX: I77.0 Arteriovenous fistula, acquired (principal)
CPT/HCPCS: 99024

== ENCOUNTER → 2024-08-15 09:55 | Outpatient (BNVA) | payer MEDICARE, SELFPAY | PROVIDERS: Visit Provider Surgery Vascular Surgery | DX: I77.0 Arteriovenous fistula, acquired (principal); Z79.01 Long term (current) use of anticoagulants | CPT/HCPCS: 99212 ==

== ENCOUNTER → 2024-08-29 09:59 | Outpatient (BNVA) | payer MEDICARE, SELFPAY | PROVIDERS: Visit Provider Surgery Vascular Surgery | DX: I77.0 Arteriovenous fistula, acquired (principal); Z79.01 Long term (current) use of anticoagulants | CPT/HCPCS: 99212 ==

== ENCOUNTER 2024-09-26 09:51 | Outpatient (AMB) | payer MEDICARE, SELFPAY ==
--- NOTE | 2024-09-26 09:53 | A.OFFVIS_ITS ---
Intake Visit Reasons: 1 month follow up right arm check Intake Note: Patient presents for follow up right arm check. Patient states his arm is getting a lot better . Accompanied by: Self / Same As Patient Allergies No Known Allergies Allergy (Verified 09/26/24 09:56) HPI HPI 1 month follow up right arm check: Details: Very pleasant 79-year-old gentleman presents for routine follow-up status post right upper extremity fistula ligation. He developed significant phlebitis postprocedure. It appears to be doing somewhat better now. Overall swelling and discomfort have decreased. He now presents for routine follow-up. Of note he is being maintained on Eliquis for more proximal extension for clot. Now presents for routine follow-up. [facility] Medical History HTN (hypertension) History of stent insertion of renal artery Obstructive uropathy Proteinuria Hyperparathyroidism due to renal insufficiency Chronic kidney disease, stage 3a Surgical History History of prostate surgery Kidney transplant status Family History Father Heart disease Hypertension Social History Alcohol intake: never Patient Tobacco Use Status: Current someday Tobacco user Tobacco use type: Pipe Review of Systems Const All systems reviewed & are unremarkable except as noted in HPI and below Reports no additional complaints ENT Reports Normal hearing present Card Denies chest pain, Denies chest pain at rest, Denies chest pain with activity and Denies pedal edema Resp Denies cough GI Denies abdominal pain Musc Denies abnormal gait, Denies muscle cramps and Denies radiating pain into limb Skin/Breast Denies skin ulcer and Denies wounds Neuro Reports Normal hearing present and Denies abnormal gait Psych Reports no additional complaints Physical Exam Const General: cooperative, healthy appearing and comfortable Orientation/consciousness: oriented to person, oriented to place and oriented to time HEENT Head: Yes normal to inspection Neck Neck: Yes normal visual inspection Carotids: no bruits Chest Chest palpation & inspection: normal inspection of the chest Resp Effort & Inspection: normal respiratory effort and able to speak in complete sentences Auscultation: clear to auscultation bilaterally, no crackles, no rales, no rhonchi and no wheezes Cardio Other: Right upper extremity palpable radial ulnar and brachial pulses. 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 Rate: regular rate Rhythm: regular rhythm Heart sounds: S1 normal heart sound present and S2 normal heart sound present Bruits: no carotid bruits Peripheral pulses: Peripheral pulses 2+ throughout GI Inspection: Yes normal to inspection Skin Wounds: no wounds Hair: normal Neuro General: oriented to person, oriented to place and oriented to time Cranial nerves: Yes CN's II-XII intact bilaterally and Yes Normal hearing present Cognition (Neuro): normal cognition Motor exam (neuro): 5/5 motor strength present throughout Extrem Other: venous exam: No significant superficial varicosities or spider telangiectasias, minimal edema General: No clubbing, No cyanosis and No edema Psych Appearance: grossly normal Mental Status: mental status grossly normal Speech and movement: Normal speech and movement present Assessment & Plan Assessment & Plan (1) AVF (arteriovenous fistula): Code(s): I77.0 - Arteriovenous fistula, acquired Category: Medical Plan: In short patient is an occluded right upper extremity fistula. He has signifi cantly large aneurysmal portions that are a source of pain and discomfort for him. We will schedule him for removal of these areas. Risks benefits complications of the procedure were discussed in detail with the patient and he will require right upper extremity fistula removal. He is in agreement and would like to move forward. By the time he is scheduled he should have completed his Eliquis regimen. Thank you for allowing us to assist in his care. If there are any questions or concerns please do not hesitate to contact us. Coding Level of Care Code Est Pt Level 4 (07561) Diagnoses AVF (arteriovenous fistula) I77.0
--- OUTSIDE RECORDS SUMMARY | 2024-09-26 11:16 | XMS_ITS | Encounter Summary ---
Author Organization [facility] Address [address] [place] [address] Phone Care Team Providers Care Purchase Request Editor Name Role Phone Librado Walter PA-C Primary Care Provider [phone] Encounter Details Date Type Department Care Team (Late st Contact Info) Description 06/09/2022 Telephone [facility] [address] [place] [phone] Randy Addison MD Social History Tobacco Use Types Packs/Day Years Used Date Smoking Tobacco: Never Smokeless Tobacco: Never Alcohol Use Standard Drinks/Week Comments Yes 0 (1 standard drink = 0.6 oz pure alcohol) Alcoholic Drinks/day: 1-2 drinks per day Sex and Gender Information Value Date Recorded Sex Assigned at Not on file Legal Sex Male 4:59 PM EST Gender Identity Not on file Sexual Orientation Not on file documented as of this encounter Miscellaneous Notes * Telephone Encounter - Gayathri Angelo - 06/09/2022 1:07 PM EST Pt called, he needs a refill for his catheters. Please send to [facility] Thank you documented in this encounter Plan of Treatment Not on file documented as of this encounter Visit Diagnoses Not on filedocumented in this encounter Care Teams Purchase Request Editor Relationship Specialty Start Date End Date Librado Walter PA-C [address] [place] [address] PCP - General Physician Fuel Cell Engineer 08/05/21 documented as of this encounter
--- OUTSIDE RECORDS SUMMARY | 2024-09-26 11:16 | XMS_ITS | Clinical Summary ---
Author Organization [facility] Address [phone] [place] [address] Care Team Providers Care Stock Speculator Name Role Phone Theo Joyce MD Primary Care Provider Unavaila ble Allergies No known active allergies Medications Medication Sig Dispensed Refills Start Date End Date Status aspirin 325 MG tablet Take 1 tablet by mouth daily. 05/10/2014 Active famotidine (PEPCID) 20 MG tablet Take 1 tablet by mouth daily. 01/30/2014 Active finasteride (PROSCAR) 5 mg tablet Take 1 tablet by mouth daily. 10/05/2011 Active tacrolimus (PROGRAF) 1 MG capsule Take 3 mg by mouth. 11/05/2014 Active mycophenolate (CELLCEPT) 200 mg/mL suspensionIndications: prevention of kidney transplant rejection Take 2.5 mL (500 mg total) by mouth 2 (two) times a day. 2.5 mL 11 04/18/2015 Active Active Problems Problem Noted Date Diagnosed Date End-stage renal disease 11/27/2013 Overview (09/22/2014): End stage renal disease Hypertensive disorder 11/27/2013 Overview (09/22/2014): Hypertension Benign prostatic hyperplasia 11/27/2013 Overview (09/22/2014): Benign prostatic hyperplasia Immunizations Name Administration Dates Next Due Influenza Nasal, Unspecified Formulation 04/11/2013 Influenza Quadrivalent Prese rvative Free IM 07/12/2014 Influenza, Unspecified Formulation 05/13(Deferred: Other - med eval. , Ordered By: [id number]) Pneumococcal, Unspecified Formulation 05/13/2014(Deferred: Other - med. immunusuppresant eval., Ordered By: [id number]),01/27/2014(Deferred: Other - , Ordered By: [id number]) Td, unspecified formulation 01/25/2009 Social History Tobacco Use Types Packs/Day Years Used Date Smoking Tobacco: Former Alcohol Use Standard Drinks/Week Comments Yes 0 (1 standard drink = 0.6 oz pur e alcohol) Education Answer Date Recorded Are you interested in more education? Not on samantha e 12/13/2022 Are you concerned about learning? Not on file 12/13/2022 No 12/13/2022 No 12/13/2022 Digital Access Answer Date Recorded No 12/27/2022 No 12/27/2022 No 12/27/2022 Reliable internet access at home? Not on file 12/27/2022 Device with a working camera? Not on file Sex and Gender Information Value Date Recorded Sex Assigned at Not on file Gender Identity Not on file Sexual Orientation Not on file Last Filed Vital Signs Vital Sign Reading Time Taken Comments Blood Pressure 192/73 04/18/2015 10:24 AM EDT Pulse 56 04/18/2015 10:24 AM EDT Temperature 36.8 ??C (98.3 ??F) 06/07/2014 1:27 PM ES T Respiratory Rate - - Oxygen Saturation 100% 04/18/2015 10:24 AM EDT Inhaled Oxygen Concentration - - Weight 66.9 kg (147 lb 8 oz) 04/18/2015 10:24 AM EDT Height 172.7 cm (5' 8 ) 04/18/2015 10:24 AM EDT Body Mass Index 22.43 04/18/2015 10:24 AM EDT Plan of Treatment Health Maintenance Due Date Last Done Comments BLOOD PRESSURE 1943 PNEUMOCOCCAL VACCINES (50+ years) (1 of 2 - PCV) 1962 ZOSTER VACCINES (1 of 2) 1962 DEPRESSION SCREENING 04/18/2016 04/18/2015, 04/18/2015 RSV VACCINE (1 - 1-dose 75+ series) 2018 Adult Td,Tdap Booster 01/25/2019 01/25/2009 COVID-19 VACCINE (3 - Pfizer risk series) 10/22/2020 09/24/2020, 09/03/2020 INFLUENZA VACCINE (#1) 2024 0, 07/12/2014 HEPATITIS B SCREENING Completed 11/27/2013 , 10/05/2011, 06/18/2010 HEPATITIS A VACCINES Aged Out No long er eligible based on patient's age to complete this topic HIB VACCINES Aged Out No longer eligi ble based on patient's age to complete this topic MENINGOCOCCAL VACCINES (ACWY) Aged Out No longer eligible based on patient's age to complete this topic Medical Devices Not on file Procedures Procedure Name Priority Date/Time Associated Diagnosis Comments HISTORICAL LAB Routine 11/27/2013 1:59 PM EDT from Last 3 Months or Most Recently Relevant to Health Maintenance Results * (ABNORMAL) Historical Lab (11/27/2013 1:59 PM EDT) TOT PROT 6.5 6.4 - 8.3 g/dL [facility] TP-IGG NEGATIVE NEGATIVE [facility] PTH-INTACT 137.2(A) 15 - 65 pg/mL [facility] PROTEIN ELECTROPHORESIS SEE PATHOLOGY REPORT [facility] STRONGYLOIDES AB NEGATIVE NEGATIVE [facility] Comment:TEST PERFORMED BY [employer] [place] PSA 3.67 0 - 4 ng/mL [facility] HIV-ABS NEGATIVE NEGATIVE [facility] Comment:SCREENING FOR HIV AN TIBODY 1 + 2 HBsAg NEGATIVE NEGATIVE [facility] HBsAb 114.3 NEGATIVE mIU/mL [facility] Comment: POSITIVE (> or = 10 mIU/mL) THIS RESULT INDICATES AN ADEQUATE IMMUNITY TO HEPATITIS B FROM PREVIOUS ACUTE OR CHRONIC HEPATITIS B VIRUS (HBV) INFECTION OR HBV VACCINATION. HBcAb NEGATIVE NEGATIVE [facility] HBc IgM NEGATIVE NEGATIVE [facility] HCV NEGATIVE NEGATIVE [facility] 11/27/2013 1:59 PM EDT Comment:BLOOD Romel Gifford MD, PhD LAB BLOOD ORDER STEVE [address] [place] [address] from Last 3 Months or Most Recently Relevant to Health Maintenance Care Teams Stock Speculator Relationship Specialty Start Date End Date Theo Joyce MD PCP - General 12/06/14 Additional Source Comments The information contained in this document represents components of the legal health record. It is not the complete legal health record.[facility]
--- OUTSIDE RECORDS SUMMARY | 2024-09-26 11:16 | XMS_ITS | Clinical Summary ---
Author Organization [facility] Address [address] [facility] [address] [place] [address] Phone Care Team Providers Care Manager Security And Safety Name Role Phone Librado Walter PA-C Primary Care Provider [phone] Allergies No known active allergies Medications aspirin 325 MG tablet Take 1 tablet by mouth 1 (one) time each day 4 Active Lubricants (surgical lubricant) gel Apply topically 4 (four) times a day 7 Active cholecalciferol (VITAMIN D-3) 25 MCG (1000 UT) capsule Take 1 capsule by mouth 1 (one) time each day Active famotidine (PEPCID) 20 MG tablet Take 1 tablet by mouth 1 (one) time each day Active amLODIPine (NORVASC) 10 MG tablet TAKE 1 TABLET BY MOUTH EVERY DAY 90 tablet 4 3 Active tacrolimus (PROGRAF) 0.5 MG capsule Take 1 mg by mouth in the morning and 1 mg in the evening. Active lisinopril 2.5 MG tablet TAKE 1 TABLET BY MOUTH EVERYDAY AT BEDTIME 90 tablet 4 3 Active finasteride (PROSCAR) 5 MG tablet TAKE 1 TABLET BY MOUTH EVERY DAY 90 tablet 11 3 Active Active Problems Problem Noted Date Diagnosed Date Dialysis finding 11/24/2021 Overview (11/24/2021): [facility] [id number] SENIOR [employer] Ex-smoker 11/24/2021 Acute nontraumatic kidney injury 10/17/2020 Anemia of chronic renal failure 10/17/2020 Stage 3a chronic kidney disease 10/17/2020 Hyperparathyroidism due to renal insufficiency 0 10/17/2020 Hypertensive heart and renal disease with (congestive) heart failure 10/17/2020 Iron deficiency anemia 10/17/2020 Kidney replaced by transplant 10/17/2020 Renal hypertension 10/17/2020 Urinary tract obstruction 10/17/2020 Vitamin D deficiency 10/17/2020 End-stage renal disease 11/27/2013 Overview (10/17/2020): End stage renal disease Essential hypertension 11/27/2013 Overview (10/17/2020): Hypertension Resolved Problems Problem Noted Date Diagnosed Date Resolved Date Poisoning by antineoplastic and immunosuppressive drugs 10/17/2020 10/17/2020 Benign prostatic hyperplasia 11/27/2013 10/17/2020 Overview (10/17/2020): Benign prostatic hyperplasia Immunizations Name Administration Dates Next Due Influenza, Quadrivalent, Preservative Free 07/12 Influenza, Quadrivalent, With Preservative 06/06 Influenza, Unspecified 04/11/2013 Pneumococcal Polysaccharide 03/21/2014 Td, Unspecified 01/25/2009 Social History Tobacco Use Types Packs/Day Years Used Date Smoking Tobacco: Never Smokeless Tobacco: Never Tobacco Cessation:Counseling Given: Not Answered Alcohol Use Standard Drinks/Week Comments Yes 0 (1 standard drink = 0.6 oz pure alcohol) Alcoholic Drinks/day: 1-2 drinks per day Sex and Gender Information Value Date Recorded Sex Assigned at Not on file Legal Sex Male 4:59 PM EST Gender Identity Not on file Sexual Orientation Not on file Last Filed Vital Signs Vital Sign Reading Time Taken Comments Blood Pressure 148/60 03/22/2023 1:15 PM EDT Pulse 63 03/22/2023 1:15 PM EDT Temperature - - Respiratory Rate - - Oxygen Saturation 99% 08/05/2021 1:57 PM EST Inhaled Oxygen Concentration - - Weight 65.4 kg (144 lb 3.2 oz) 03/22/2023 1:15 P M EDT Height 175.3 cm (5' 9 ) 12/07/2019 12:00 PM EDT Body Mass Index 21.29 12/07/2019 12:00 PM EDT Plan of Treatment Health Maintenance Due Date Last Done Comments Pneumococcal Vaccine: 65+ Years (2 of 2 - PCV) 03/21/2015 03/21/2014 Influenza Vaccine (#1) 2024 1, 07/12/2014, 04/11/2013 Hepatitis B Vaccine Aged Out No longe r eligible based on patient's age to complete this topic Insurance [facility] Care Teams Manager Security And Safety Relationship Specialty Start Date End Date Librado Walter PA-C [address] [place] [address] PCP - General Physician Mower Operator 08/05/21
== END 2024-09-26 10:11 | disposition home or self-care (01) ==
PROVIDERS: Visit Provider Surgery Vascular Surgery
DX: I77.0 Arteriovenous fistula, acquired (principal)
CPT/HCPCS: 99024

== ENCOUNTER 2024-10-19 09:12 | Outpatient (AMB) | payer MEDICARE, SELFPAY ==
--- NOTE | 2024-10-19 09:31 | HO.NEPHOV_ITS ---
Vital Signs 10/19/24 09:33 Height 5 ft 9 in Weight 147 lb 6 oz BMI 21.8 BP 130/60 Blood Pressure Location Lt brachial Position Sitting Intake Visit Reasons: 2mon follow up w/labs-[facility] Group Work Program Director Required: No Accompanied by: Self / Same As Patient Allergies No Known Allergies Allergy (Verified 10/19/24 09:33) PFSH Medical History HTN (hypertension) History of stent insertion of renal artery Obstructive uropathy Proteinuria Hyperparathyroidism due to renal insufficiency Chronic kidney disease, stage 3a Surgical History History of prostate surgery Kidney transplant status Family History Father Heart disease Hypertension Social History Alcohol intake: never Patient Tobacco Use Status: Current someday Tobacco user Tobacco use type: Pipe Results Reviewed Nephrology Results: No Data to Display Coding
--- NOTE | 2024-10-19 09:31 | HO.NEPHOV ---
Vital Signs 10/19/24 09:33 Height 5 ft 9 in Weight 147 lb 6 oz BMI 21.8 BP 130/60 Blood Pressure Location Lt brachial Position Sitting Intake Visit Reasons: 2mon follow up w/labs-LVM Allergies No Known Allergies Allergy (Verified 10/19/24 09:33) HPI Comments Details: Avery was seen in follow-up of his kidney transplant. He had donor renal transplant on 01/26/2014 in [facility] in [place]. 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 He had a follow-up transplant renal artery ultrasound which was negative for any artery stenosis. He monitors his blood pressure readings closely at home. He continues to self intermittently catheterize himself 4 times a day. He has not had any hematuria, urinary tract infection. He does not have any new skin rashes, joint swellings, fever, suprapubic pain, pain over his renal transplant, nausea, vomiting, diarrhea, shortness of breath, proximal nocturnal dyspnea, orthopnea or pedal edema. His weight has been steady and has not had any night sweats. He avoids any [id number] medications. He has H/O BCC which he follows with his java j2ee software engineer . His PSA was OK with urologist( Alissa). His systolic BP has been running high at home and he has restarted lisinopril 2.5 mg daily [facility] Medical History HTN (hypertension) History of stent insertion of renal artery Obstructive uropathy Proteinuria Hyperparathyroidism due to renal insufficiency Chronic kidney disease, stage 3a Surgical History History of prostate surgery Kidney transplant status Family History Father Heart disease Hypertension Social History Alcohol intake: never Patient Tobacco Use Status: Current someday Tobacco user Tobacco use type: Pipe Review of Systems Const All systems reviewed & are unremarkable except as noted in HPI and below Physical Exam Const General: comfortable and no acute distress Orientation/consciousness: patient oriented x3 HEENT Head: Yes normocephalic Mouth: Normal oral and palatal mucosa present Eyes EOM: EOMs intact bilaterally Neck Neck: Yes supple Resp Auscultation: clear to auscultation bilaterally Cardio Jugular venous distension: no JVD Rate: regular rate GI Palpation (GI): Soft to palpation Auscultation: normal bowel sounds General: Yes no CVA tenderness Back/Spine/Pelvis Back: no CVA tenderness Skin General skin exam: no rashes or lesions noted Neuro General: patient oriented x3 and moves all extremities Extrem General: Yes no pedal edema Results Reviewed Nephrology Results: No Data to Display Assessment & Plan Assessment & Plan (1) Renal transplant recipient: Code(s): Z94.0 - Kidney transplant status Category: Surgical (2) Chronic kidney disease, stage 3a: Code(s): N18.31 - Chronic kidney disease, stage 3a Category: Medical (3) Hypertension: Code(s): I10 - Essential (primary) hypertension Category: Medical Qualifiers: Hypertension type: renovascular hypertension Qualified Code(s): 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 His transplant function had been stable . He has not had any significant proteinuria. His lisinopril is on hold since he had the pneumonia. He had a transplant renal artery stenosis and underwent angioplasty and stenting of his renal artery. I shall repeat Doppler renal tx artery with time. He monitors his blood pressure closely at home and has been at goal. He is on a low-sodium diet. He has not had any urinary infections. He intermittently self-catheterize 3-4 times a day. He has no clinical symptoms or signs of or tacrolimus toxicity. He has seen vascular surgeon for his AVF. He follows up with java j2ee software engineer very closely. He should remain well hydrated. All his questions were answered. Orders: Orders Tacrolimus Prograf 2 Months I15.0 - Renovascular hypertension, N18.31 - Chronic kidney disease, stage 3a, Z94.0 - Kidney transplant status Calcium 2 Months I15.0 - Renovascular hypertension, N18.31 - Chronic kidney disease, stage 3a, Z94.0 - Kidney transplant status Aspartate Amino Transferase 2 Months I15.0 - Renovascular hypertension, N18.31 - Chronic kidney disease, stage 3a, Z94.0 - Kidney transplant status Complete Blood Count Auto Diff 2 Months I15.0 - Renovascular hypertension, N18.31 - Chronic kidney disease, stage 3a, Z94.0 - Kidney transplant status Creatinine 2 Months I15.0 - Renovascular hypertension, N18.31 - Chronic kidney disease, stage 3a, Z94.0 - Kidney transplant status Blood Urea Nitrogen 2 Months I15.0 - Renovascular hypertension, N18.31 - Chronic kidney disease, stage 3a, Z94.0 - Kidney transplant status Electrolytes 2 Months I15.0 - Renovascular hypertension, N18.31 - Chronic kidney disease, stage 3a, Z94.0 - Kidney transplant status Phosphorus 2 Months I15.0 - Renovascular hypertension, N18.31 - Chronic kidney disease, stage 3a, Z94.0 - Kidney transplant status Magnesium 2 Months I15.0 - Renovascular hypertension, N18.31 - Chronic kidney disease, stage 3a, Z94.0 - Kidney transplant status Alanine Aminotransferase 2 Months I15.0 - Renovascular hypertension, N18.31 - Chronic kidney disease, stage 3a, Z94.0 - Kidney transplant status Protein Creatinine Ratio, Ur 2 Months I15.0 - Renovascular hypertension, N18.31 - Chronic kidney disease, stage 3a, Z94.0 - Kidney transplant status Coding Level of Care Code Est Pt Level 4 (89769) Diagnoses Renal transplant recipient Z94.0 Chronic kidney disease, stage 3a N18.31 Renovascular hypertension I15.0 Hypertension type: renovascular hypertension
[2024-10-19 09:33] VITALS: BP 130/60; BMI 21.8
== END 2024-10-19 09:56 | disposition home or self-care (01) ==
LOC: HO.HKAS 09:13
PROVIDERS: Visit Provider Internal Medicine Nephrology
DX: Z94.0 Kidney transplant status (principal); N18.31 Chronic kidney disease, stage 3a; I15.0 Renovascular hypertension
CPT/HCPCS: 99214

== ENCOUNTER → 2024-10-19 09:12 | Outpatient (BNVA) | payer MEDICARE, SELFPAY | PROVIDERS: Visit Provider Internal Medicine Nephrology | DX: I15.0 Renovascular hypertension (principal); N18.31 Chronic kidney disease, stage 3a; Z94.0 Kidney transplant status | CPT/HCPCS: 99212 ==

== ENCOUNTER 2024-11-13 05:58 | Day surgery (SDC) | payer MEDICARE, SELFPAY ==
[2024-11-09 12:12] VITALS: BMI 21.8
[2024-11-13 06:04] VITALS: BMI 21.4
[2024-11-13 06:17] VITALS: BP 165/61; PULSE 59; RESP 16; TEMP 36.4; O2SAT 99
[2024-11-13] MEDS: Lactated Ringers 1,000 ML 80 ML IVCONT (06:31)
[2024-11-13 06:57] LABS: Hematocrit 37.5 % (42.0-52.0); Hemoglobin 12.7 g/dl (14.0-18.0); Mean Corpuscular HGB Conc 33.9 g/dl (31.0-36.0); Mean Corpuscular Hemoglobin 30.6 pg (27.0-33.0); Mean Corpuscular Volume 90.4 fL (80.0-98.0); Mean Platelet Volume 8.9 fL (9.4-12.4); Platelet Count 305 X10*3/uL (160-400); Red Blood Count 4.15 X10*6/uL (4.60-5.80); White Blood Count 7.5 X10*3/uL (4.8-10.8)
[2024-11-13 07:03] LABS: Anion Gap 14 (12-20); Blood Urea Nitrogen 39 mg/dL (9-16); Calcium 9.5 mg/dL (8.4-10.2); Carbon Dioxide 18 mmol/L (22-29); Chloride 109 mmol/L (96-108); Creatinine Clr Calc Pharmacy 28.4; Estimated Glomerular Filt Rate 34; Glucose Random 106 mg/dL (60-115); Potassium 4.8 mmol/L (3.3-5.1); Sodium 136 mmol/L (135-145)
--- NOTE | 2024-11-13 07:33 | HO.ANESPROP2 ---
HPI - Anesthesia Eval Consult details Narrative: 79 yo male patient for removal of AV fistula Right upper arm. Patient had renal transplant. Has not used fistula for over 10 years. Now with swelling of arm PMFSH Active Problems Active Problems: All Active Problems DVT (deep venous thrombosis) (Acute) AVF (arteriovenous fistula) (Acute) Cough (Acute) Hypertension (Acute) Renal transplant recipient (Acute) Chronic kidney disease, stage 3a (Acute) Past Medical History Medical History HTN (hypertension) History of stent insertion of renal artery Obstructive uropathy Proteinuria Hyperparathyroidism due to renal insufficiency Chronic kidney disease, stage 3a Family History Family History Father Heart disease Hypertension Family history of problems with anesthesia: No Surgical History Surgical History History of surgery History of surgery History of prostate surgery Kidney transplant status History of Problems with Anesthesia: No Social History Social History Alcohol intake: never Patient Tobacco Use Status: Former Tobacco user Tobacco use type: Cigarette Second Hand Smoke Exposure: No Use of substances other than those prescribed or required for medical reasons: Yes Substance Use Frequency: Occasionally Have you been hit, kicked, punched, or otherwise hurt by someone within the past year? If so, by whom?: No Are you DNR?: No Advance Directives: No Advance Directives Information Provided: Yes Advance Directives on File: No Poor oral hygiene: No Meds Allergies Allergy/AdvReac Type Severity Reaction Status Date / Time No Known Allergies Allergy Verified 10/19/24 09:33 Active Medications: Current Medications Lactated Ringer's (Lr) 1,000 mls @ 80 mls/hr IVCONT .[id number] Last Admin: 11/13/24 06:31 Dose: 80 mls/hr Home Medications ?Medication ?Instructions ?Recorded ?Confirmed ?Last Taken ?Type aspirin 81 mg tablet,delayed 81 mg PO DAILY 06/21/23 11/13/24 11/12/24 History release cholecalciferol (vitamin D3) 50 50 mcg PO DAILY 06/21/23 11/13/24 11/13/24 History mcg (2,000 unit) capsule famotidine 20 mg tablet 20 mg PO DAILY 06/21/23 11/13/24 11/12/24 History tacrolimus 0.5 mg capsule, 2 mg PO DAILY 10/19/24 11/13/24 11/13/24 History immediate-release Exam Height,Weight and Vital Signs: Height 5 ft 9 in Weight 65.7 kg Last Vital Signs Temp 97.6 F 11/13/24 06:17 Pulse 59 11/13/24 06:17 Resp 16 11/13/24 06:17 BP 165/61 H 11/13/24 06:17 Pulse Ox 99 11/13/24 06:17 O2 Del Method Room Air 11/13/24 06:17 Pertinent Lab Results Pertinent Lab Results: Laboratory Tests 11/13/24 06:43 WBC 7.5 RBC 4.15 L D Hgb 12.7 L Hct 37.5 L MCV 90.4 MCH 30.6 MCHC 33.9 RDW 12.0 Plt Count 305 D MPV 8.9 L Absolute Nucleated RBC 0.000 Nucleated RBC % (auto) 0.0 Sodium 136 Potassium 4.8 Chloride 109 H Carbon Dioxide 18 L Anion Gap 14 BUN 39 H Creatinine 1.89 H Estim Creat Clear Calc 28.4 Estimated GFR 34 Random Glucose 106 Calcium 9.5 Airway Mallampati Class: II TM Dist: >3cm Neck ROM: Full Loose/Missing/Broken Teeth: Yes (Missing some teeth back-extracted. Denies loose or broken teeth) Heart: RRR + murmur Lungs: CTAB Assessment and Plan Assessment Anesthesia Assessment: Anesthesia Plan Discussed and Chart Reviewed Final Anesthetic Review Family History of Problems with Anesthesia: No History of Problems with Anesthesia: No NPO: Yes ASA Class: III Final Preanesthetic Review: No Changes in Pt Med Stat, Meds/Allgs Chart Reviewed, Consent Obtained/Reviewed and Anes Risks/Benef Reviewed Patient Risk: Intermediate Procedure Risk: Intermediate Assessment/Block/Sedation in SS: Assess/Block/Sedation- Anesthetic Plan Anesthetic Plan: GA Disposition: Standard PACU
--- NOTE | 2024-11-13 07:35 | MHC.SHP ---
Pre-Procedural Eval Section A - 24 Hr Update-Section A only Date of Service: 11/13/24 The patient is an INPATIENT: No Changes since office visit: Yes Patient answered all questions The patient has been examined within 24 hours of the surgical procedure. The History & Physical has been completed within 30 days and I have reviewed it.: Yes Section B - Complete if H&P > 30 days Chief Complaint: Arteriovenous fistula, acquired Allergies: Allergies Allergy/AdvReac Type Severity Reaction Status Date / Time No Known Allergies Allergy Verified 10/19/24 09:33 Plan I have reviewed the history and physical and performed a pertinent physical examination on my patient. No changes have occurred unless specified. Time Spent With Patient Time: Total time managing care of this patient today ____ minutes.
[2024-11-13] MEDS: ceFAZolin Sodium/Dextrose,Iso 2 GM/50 ML PIGGYBACK IV (07:55)
--- NOTE | 2024-11-13 09:19 | W.PM.OPN ---
Operative Note Operative Note Date of Service: 11/13/24 Narrative: Operative note by [facility] Preoperative diagnosis: Nonfunctioning right upper extremity fistula Postoperative diagnosis: Same Procedure: Removal of right upper extremity fistula Surgeon:Matthew Marroquin M.D. Environmental Health Sanitarian: Charlotte CROUCH Anesthesia: General Specimens: 1 Drains: None Estimated blood loss: 100 mL Indications: 79-year-old gentleman with history of end-stage renal disease. He subsequently has had a renal transplant. He has a nonfunctioning right upper extremity fistula. It has become quite enlarged and a source of pain and discomfort for him. He now presents for removal. The patient has signed the informed consent after reviewing risks, complications, benefits, and alternatives previously discussed with the patient. The patient was given the opportunity to ask any additional questions or voice any concerns. All questions were answered to the patient's satisfaction. Procedure in detail: Patient was brought to the operating room prior to which a time-out was called for patient identification and site verification. Right upper extremity was prepped and draped in standard surgical fashion. We created an incision just along our prior incision line along the length of the fistula. Three separate skin incisions were created. We were able to dissect out the fistula in its entirety. We ligated the distal end of the fistula with a 0 silk tie. Proximally we placed an 0 silk tie along with an 0 silk suture ligature. We then dissected this free ligated this and we then progressively remove this fistula and dissected it free from the surrounding tissue. Once this was all accomplished we then tried to remove the fistula. This had to be removed in a piecemeal fashion removing the internal thrombus. Once this was removed in its entirety the 3 separate incisions were thoroughly irrigated out. Adequate hemostasis was achieved. Deep layer was reapproximated using 2-0 Polysorb. Superficial layer using 3-0 Polysorb. Finally skin using a running subcuticular 4-0 Monocryl. Steri-Strips and a sterile dressing were applied. At the end of the case sponge instrument counts were correct. Patient tolerated the procedure well. Returned to recovery with stable vitals. This note is constructed using voice recognition software. While every effort has been made to ensure accuracy, temperature inspector errors may have been included. Thank you for allowing me to participate in the care of your patient. Yours sincerely, Matthew Marroquin MD, FACS, R.P.V.I.
[2024-11-13 09:23] VITALS: BP 125/64; PULSE 64; RESP 20; TEMP 36.7; O2SAT 98
[2024-11-13 09:28] VITALS: BP 130/66; PULSE 66; RESP 20; O2SAT 96
[2024-11-13 09:33] VITALS: BP 135/65; PULSE 66; RESP 20; O2SAT 98
[2024-11-13 09:37] VITALS: BP 134/53; PULSE 64; RESP 20; O2SAT 100
[2024-11-13 09:53] VITALS: BP 134/53; PULSE 63; RESP 20; TEMP 36.6; O2SAT 99
== END 2024-11-13 10:15 | disposition home or self-care (01) ==
PROVIDERS: Visit Provider Surgery Vascular Surgery
PROC: (CPT 36831; principal; 2024-11-13 07:30)
DX: T82.590A Other mechanical complication of surgically created arteriovenous fistula, initial encounter (principal); M79.601 Pain in right arm; Y82.8 Other medical devices associated with adverse incidents; I12.0 Hypertensive chronic kidney disease with stage 5 chronic kidney disease or end stage renal disease; N18.6 End stage renal disease; Z94.0 Kidney transplant status; Z87.891 Personal history of nicotine dependence
CPT/HCPCS: 36831; 36415; 80048; 85027; 88304; A4649; J0690; J1644; J2003; J2405; J2704; J2795; J3010

== ENCOUNTER → 2024-11-13 05:58 | Outpatient (BNV) | payer MEDICARE, SELFPAY | PROVIDERS: Visit Provider Surgery Vascular Surgery | DX: T82.590A Other mechanical complication of surgically created arteriovenous fistula, initial encounter (principal); Z94.0 Kidney transplant status | CPT/HCPCS: 36833; 37618 ==

== ENCOUNTER 2024-11-28 10:40 | Outpatient (AMB) | payer MEDICARE, SELFPAY ==
--- NOTE | 2024-11-28 10:45 | A.OFFVIS_ITS ---
Intake Visit Reasons: 2 week follow up R arm fistula removal 11/13/24 Intake Note: Patient presents for follow up right arm fistula removal done on 11/13/24. No complaints. Accompanied by: Self / Same As Patient Allergies No Known Allergies Allergy (Verified 11/28/24 10:46) HPI HPI 2 week follow up R arm fistula removal 11/13/24: Details: The patient is an 79-year-old male presenting for follow-up after right upper extremity fistula removal on November 13, 2024. An issue was noted with a pulsatile bump at the surgical site, which required further ligation to remove the mass. Post-surgical swelling was significant, extending down the arm. However, the swelling appears to be reducing gradually with time. Although there is still minimal puffiness, the lumps have substantially decreased, with noted hardness in certain areas. Initial bruising was extensive, but it is healing well. While the patient expressed that the current swelling is slightly more than expected, he anticipates it will continue to diminish over time, similar to prior experiences. [facility] Medical History HTN (hypertension) History of stent insertion of renal artery Obstructive uropathy Proteinuria Hyperparathyroidism due to renal insufficiency Chronic kidney disease, stage 3a Surgical History History of surgery History of surgery History of prostate surgery Kidney transplant status Family History Father Heart disease Hypertension Social History Alcohol intake: never Patient Tobacco Use Status: Former Tobacco user Tobacco use type: Cigarette Second Hand Smoke Exposure: No Review of Systems Const All systems reviewed & are unremarkable except as noted in HPI and below Reports no additional complaints ENT Reports Normal hearing present Card Denies chest pain, Denies chest pain at rest, Denies chest pain with activity and Denies pedal edema Resp Denies cough GI Denies abdominal pain Musc Denies abnormal gait, Denies muscle cramps and Denies radiating pain into limb Skin/Breast Denies skin ulcer and Denies wounds Neuro Reports Normal hearing present and Denies abnormal gait Psych Reports no additional complaints Physical Exam Const General: cooperative, healthy appearing and comfortable Orientation/consciousness: oriented to person, oriented to place and oriented to time HEENT Head: Yes normal to inspection Neck Neck: Yes normal visual inspection Carotids: no bruits Chest Chest palpation & inspection: normal inspection of the chest Resp Effort & Inspection: normal respiratory effort and able to speak in complete sentences Auscultation: clear to auscultation bilaterally, no crackles, no rales, no rhon chi and no wheezes Cardio Rate: regular rate Rhythm: regular rhythm Heart sounds: S1 normal heart sound present and S2 normal heart sound present Bruits: no carotid bruits Peripheral pulses: Peripheral pulses 2+ throughout GI Inspection: Yes normal to inspection Skin Other: Right upper extremity healed Wounds: no wounds Hair: normal Neuro General: oriented to person, oriented to place and oriented to time Cranial nerves: Yes CN's II-XII intact bilaterally and Yes Normal hearing present Cognition (Neuro): normal cognition Motor exam (neuro): 5/5 motor strength present throughout Extrem Other: venous exam: No significant superficial varicosities or spider telangiectasias, minimal edema General: No clubbing, No cyanosis and No edema Psych Appearance: grossly normal Mental Status: mental status grossly normal Speech and movement: Normal speech and movement present Assessment & Plan Assessment & Plan (1) AVF (arteriovenous fistula): Comment: 11/13/2024 - fistula removal Code(s): I77.0 - Arteriovenous fistula, acquired Category: Medical Plan: In our discussion, I informed the patient about the successful removal of the pulsatile bump at the surgical site during the fistula removal. We reviewed the expected recovery process, noting that swelling should progressively decrease, and firmness at the incision site will subside over time. The patient was advised that engaging in routine functions like swimming will be beneficial and reaffirmed that the surgical area is not at risk for rupture. We discussed that no further intervention is required at this juncture and agreed on monitoring recovery at home. This visit focused on reassurance and clarifying the postoperative trajectory and anticipated outcomes. Plan Patient was informed and verbally consented to the use of an ambient scribe for clinic note documentation during this visit. Patient Instructions: - Continue normal activities, including swimming, to promote healing. - Monitor the surgical site for any changes in swelling or discomfort. - Follow any specific care routines for the surgical area. - Return for follow-up if there are any concerning changes. - Enjoy resumption of activities and lifestyle as tolerated. Coding Level of Care Code Est Pt Level 3 (37999) Diagnoses AVF (arteriovenous fistula) I77.0
--- OUTSIDE RECORDS SUMMARY | 2024-11-28 12:21 | XMS_ITS | Clinical Summary ---
Author Organization [facility] Address [address] [address] [place] [address] Phone Care Team Providers Care Methods Specialist Name Role Phone Librado Walter PA-C Primary Care Provider [phone] Allergies No known active allergies Medications aspirin [...] Dialysis finding 11/24/2021 Overview (11/24/2021): [facility] 786-2021 PAPER BALER Ex-smoker 11/24/2021 Acute nontraumatic kidney injury 10/17/2020 [...] 10/17/2020 Overview (10/17/2020): Benign prostatic hyperplasia Immunizations Immunization Administration Dates Next Due Influenza, Quadrivalent, Preservative [...] Due Date Last Done Comments Pneumococcal Vaccine: 50+ Years (2 of 2 - PCV) 03/21/2015 03/21/2014 Influenza Vaccine (Season Ended) 2025 06/06/2021, 07/12/2014, 04/11/2013 Pneumococcal Vaccine: Peds (0 to 5 Years) and At-Risk Patients (6 to 49 Years) Discontinued 03/21/2014 Hepatitis B Vaccine Aged Out No longe r eligible based on patient's age to complete this topic Insurance [facility] Care Teams Methods Specialist Relationship Specialty Start Date End Date Librado Walter PA-C [address] [place] [address] PCP - General Physician Die Assembler 08/05/21
--- OUTSIDE RECORDS SUMMARY | 2024-11-28 12:21 | XMS_ITS | Encounter Summary ---
Author Organization [facility] Address [address] [place] [address] Phone Care Team Providers Care Software Sales Manager Name Role Phone Librado Walter PA-C Primary Care Provider [phone] Encounter Details Date Type Department Care Team (Late st Contact Info) Description 06/09/2022 Telephone [facility] [address] [place] [phone] Randy Addison MD Social History Tobacco Use [...] on filedocumented in this encounter Care Teams Software Sales Manager Relationship Specialty Start Date End Date Librado Walter PA-C [address] [place] [address] PCP - General Physician Healthcare Corporate Account Director 08/05/21 documented as of this encounter
== END 2024-11-28 11:08 | disposition home or self-care (01) ==
LOC: HO.HVS 10:41
PROVIDERS: Visit Provider Surgery Vascular Surgery
DX: I77.0 Arteriovenous fistula, acquired (principal)
CPT/HCPCS: 99024

== ENCOUNTER → 2024-11-28 10:40 | Outpatient (BNVA) | payer MEDICARE, SELFPAY | PROVIDERS: Visit Provider Surgery Vascular Surgery | DX: I77.0 Arteriovenous fistula, acquired (principal) | CPT/HCPCS: 99212 ==

== ENCOUNTER 2025-01-25 09:32 | Outpatient (AMB) | payer MEDICARE, SELFPAY ==
--- NOTE | 2025-01-25 09:36 | HO.NEPHOV ---
Vital Signs 01/25/25 09:42 Weight 147 lb BP 130/70 Blood Pressure Location Lt brachial Position Sitting Pulse 54 Pulse Source Pulse Oximeter Pulse Oximetry (%) 97 Oxygen Delivery Method Room Air Intake Visit Reasons: 3 mo follow up-Conf Intake Note: Patient here for a follow-up. Media Coordinator Required: No Accompanied by: Self / Same As Patient Allergies No Known Allergies Allergy (Verified 01/25/25 09:40) Do you need a note to return to daycare/school/sports/work: No HPI Comments Details: Avery was seen in follow-up of his kidney transplant. He had donor renal transplant on 01/26/2014 in [facility] in [place]. 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 He had a follow-up transplant renal artery ultrasound which was negative for any artery stenosis. He monitors his blood pressure readings closely at home. He continues to self intermittently catheterize himself 4 times a day. He has not had any hematuria, urinary tract infection. He does not have any new skin rashes, joint swellings, fever, suprapubic pain, pain over his renal transplant, nausea, vomiting, diarrhea, shortness of breath, proximal nocturnal dyspnea, orthopnea or pedal edema. His weight has been steady and has not had any night sweats. He avoids any [id number] medications. He has H/O BCC which he follows with his sports commentator . His PSA was OK with urologist( Alissa). He is on lisinopril 2.5 mg daily. His AVF is ligated. [facility] Medical History (Updated 01/25/25 @ 09:50 by Randy Addison MD) HTN (hypertension) History of stent insertion of renal artery Obstructive uropathy Proteinuria Hyperparathyroidism due to renal insufficiency Chronic kidney disease, stage 3a Surgical History History of surgery History of surgery History of prostate surgery Kidney transplant status Family History Father Heart disease Hypertension Social History Alcohol intake: never Patient Tobacco Use Status: Former Tobacco user Tobacco use type: Cigarette Second Hand Smoke Exposure: No Review of Systems Const All systems reviewed & are unremarkable except as noted in HPI and below Physical Exam Const General: comfortable and no acute distress Orientation/consciousness: patient oriented x3 HEENT Head: Yes normocephalic Mouth: Normal oral and palatal mucosa present Eyes EOM: EOMs intact bilaterally Neck Neck: Yes supple Resp Auscultation: clear to auscultation bilaterally Cardio Jugular venous distension: no JVD Rate: regular rate GI Palpation (GI): Soft to palpation Auscultation: normal bowel sounds General: Yes no CVA tenderness Back/Spine/Pelvis Back: no CVA tenderness Skin General skin exam: no rashes or lesions noted Neuro General: patient oriented x3 and moves all extremities Extrem General: Yes no pedal edema Assessment & Plan Assessment & Plan (1) Hypertension: Code(s): I10 - Essential (primary) hypertension Category: Medical Qualifiers: Hypertension type: renovascular hypertension Qualified Code(s): I15.0 - Renovascular hypertension (2) Renal transplant recipient: Code(s): Z94.0 - Kidney transplant status Category: Surgical (3) Chronic kidney disease, stage 3a: Code(s): N18.31 - Chronic kidney disease, stage 3a Category: Medical (4) History of stent insertion of renal artery: Comment: left Code(s): Z98.890 - Other specified postprocedural states Category: Medical (5) Metabolic acidosis: Code(s): E87.20 - Acidosis, unspecified Category: Medical Plan Avery has renal transplant since 26 January 2014 ( [facility] ). His transplant function had been stable . He has not had any significant proteinuria. He had a transplant renal artery stenosis and underwent angioplasty and stenting of his renal artery. I shall repeat Doppler renal tx artery with time. He monitors his blood pressure closely at home and has been at goal. He is on a low-sodium diet. He has not had any urinary infections. He intermittently self-catheterize 3-4 times a day. He has no clinical symptoms or signs of or tacrolimus toxicity. I started him on NaHCO3 650 mg daily. He follows up with sports commentator very closely. He should remain well hydrated. All his questions were answered. Orders: Orders Tacrolimus Prograf 3 Months E87.20 - Acidosis, unspecified, I15.0 - Renovascular hypertension, N18.31 - Chronic kidney disease, stage 3a, Z94.0 - Kidney transplant status, Z98.890 - Other specified postprocedural states Complete Blood Count Auto Diff 3 Months E87.20 - Acidosis, unspecified, I15.0 - Renovascular hypertension, N18.31 - Chronic kidney disease, stage 3a, Z94.0 - Kidney transplant status, Z98.890 - Other specified postprocedural states Electrolytes 3 Months E87.20 - Acidosis, unspecified, I15.0 - Renovascular hypertension, N18.31 - Chronic kidney disease, stage 3a, Z94.0 - Kidney transplant status, Z98.890 - Other specified postprocedural states Phosphorus 3 Months E87.20 - Acidosis, unspecified, I15.0 - Renovascular hypertension, N18.31 - Chronic kidney disease, stage 3a, Z94.0 - Kidney transplant status, Z98.890 - Other specified postprocedural states Calcium 3 Months E87.20 - Acidosis, unspecified, I15.0 - Renovascular hypertension, N18.31 - Chronic kidney disease, stage 3a, Z94.0 - Kidney transplant status, Z98.890 - Other specified postprocedural states Blood Urea Nitrogen 3 Months E87.20 - Acidosis, unspecified, I15.0 - Renovascular hypertension, N18.31 - Chronic kidney disease, stage 3a, Z94.0 - Kidney transplant status, Z98.890 - Other specified postprocedural states Creatinine 3 Months E87.20 - Acidosis, unspecified, I15.0 - Renovascular hypertension, N18.31 - Chronic kidney disease, stage 3a, Z94.0 - Kidney transplant status, Z98.890 - Other specified postprocedural states Medications: New sodium bicarbonate 650 mg PO DAILY 90 tabs 3RF Coding Level of Care Code Est Pt Level 4 (36593) Diagnoses Renovascular hypertension I15.0 Hypertension type: renovascular hypertension Renal transplant recipient Z94.0 Chronic kidney disease, stage 3a N18.31 History of stent insertion of renal artery Z98.890 Metabolic acidosis E87.20
[2025-01-25 09:42] VITALS: BP 130/70; PULSE 54; O2SAT 97
--- OUTSIDE RECORDS SUMMARY | 2025-01-25 10:35 | XMS_ITS | Clinical Summary ---
Author Organization [facility] Address [address] [facility] [address] [place] [address] Phone Care Team Providers Care Industrial Waste Inspector Name Role Phone Librado Walter PA-C Primary Care Provider [phone] Allergies No known active allergies Medications aspirin [...] Dialysis finding 11/24/2021 Overview (11/24/2021[facility] ALTERNATIVE DISPUTE RESOLUTION MEDIATOR Ex-smoker 11/24/2021 Acute nontraumatic kidney injury 10/17/2020 [...] patient's age to complete this topic Insurance [facility] Care Teams Industrial Waste Inspector Relationship Specialty Start Date End Date Librado Walter PA-C [address] [place] [address] PCP - General Physician Financial Services Education Consultant 08/05/21
== END 2025-01-25 10:05 | disposition home or self-care (01) ==
LOC: HO.HKAS 09:33
PROVIDERS: Visit Provider Internal Medicine Nephrology
DX: I15.0 Renovascular hypertension (principal); Z94.0 Kidney transplant status; N18.31 Chronic kidney disease, stage 3a; T86.19 Other complication of kidney transplant; Z95.828 Presence of other vascular implants and grafts; E87.21 Acute metabolic acidosis
CPT/HCPCS: 99214

== ENCOUNTER → 2025-01-25 09:32 | Outpatient (BNVA) | payer MEDICARE, SELFPAY | PROVIDERS: Visit Provider Internal Medicine Nephrology | DX: I10 Essential (primary) hypertension (principal); Z94.0 Kidney transplant status; N18.31 Chronic kidney disease, stage 3a; Z98.890 Other specified postprocedural states; E87.20 Acidosis, unspecified | CPT/HCPCS: 99212 ==

== ENCOUNTER 2025-04-26 09:30 | Outpatient (AMB) | payer MEDICARE, SELFPAY ==
--- NOTE | 2025-04-26 09:35 | HO.NEPHOV_ITS ---
Vital Signs 04/26/25 09:41 Height 5 ft 9 in Weight 145 lb 8 oz BMI 21.5 BP 130/60 Blood Pressure Location Lt brachial Position Sitting Pulse 65 Pulse Source Pulse Oximeter Pulse Oximetry (%) 98 Oxygen Delivery Method Room Air Intake Visit Reasons: 3m follow up-LVM Cpo Required: No Accompanied by: Self / Same As Patient Allergies No Known Allergies Allergy (Verified 04/26/25 09:41) HPI Comments Details: Avery was seen in follow-up of his kidney transplant. He had donor renal transplant on 01/26/2014 in [facility] in [place]. 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 He had a follow-up transplant renal artery ultrasound which was negative for any artery stenosis. He monitors his blood pressure readings closely at home. He continues to self intermittently catheterize himself 4 times a day. He has not had any hematuria, urinary tract infection. He does not have any new skin rashes, joint swellings, fever, suprapubic pain, pain over his renal transplant, nausea, vomiting, diarrhea, shortness of breath, proximal nocturnal dyspnea, orthopnea or pedal edema. His weight has been steady and has not had any night sweats. He avoids any [id number]-spkaisc medications. He has H/O BCC which he follows with his sr technical sales consultant . His PSA was OK with urologist( Alissa). He is on lisinopril 2.5 mg daily. His AVF is ligated. [facility] Medical History (Updated 01/25/25 @ 09:50 by Randy Addison MD) HTN (hypertension) History of stent insertion of renal artery Obstructive uropathy Proteinuria Hyperparathyroidism due to renal insufficiency Chronic kidney disease, stage 3a Surgical History History of surgery History of surgery History of prostate surgery Kidney transplant status Family History Father Heart disease Hypertension Social History Alcohol intake: never Patient Tobacco Use Status: Former Tobacco user Tobacco use type: Cigarette Second Hand Smoke Exposure: No Review of Systems Const All systems reviewed & are unremarkable except as noted in HPI and below Physical Exam Const General: comfortable and no acute distress Orientation/consciousness: patient oriented x3 HEENT Head: Yes normocephalic Mouth: Normal oral and palatal mucosa present Eyes EOM: EOMs intact bilaterally Neck Neck: Yes supple Resp Auscultation: clear to auscultation bilaterally Cardio Jugular venous distension: no JVD Rate: regular rate GI Palpation (GI): Soft to palpation Auscultation: normal bowel sounds General: Yes no CVA tenderness Back/Spine/Pelvis Back: no CVA tenderness Skin General skin exam: no rashes or lesions noted Neuro General: patient oriented x3 and moves all extremities Extrem General: Yes no pedal edema Assessment & Plan Assessment & Plan (1) Hypertension: Code(s): I10 - Essential (primary) hypertension Category: Medical Qualifiers: Hypertension type: renovascular hypertension Qualified Code(s): I15.0 - Renovascular hypertension (2) History of stent insertion of renal artery: Comment: left Code(s): Z98.890 - Other specified postprocedural states Category: Medical (3) Renal transplant recipient: Code(s): Z94.0 - Kidney transplant status Category: Surgical (4) Chronic kidney disease, stage 3a: Code(s): N18.31 - Chronic kidney disease, stage 3a Category: Medical Plan Avery has renal transplant since 26 January 2014 ( [facility] ). His transplant function had been stable . He has not had any significant proteinuria. He had a transplant renal artery stenosis and underwent angioplasty and stenting of his renal artery. I shall repeat Doppler renal tx artery with time. He monitors his blood pressure closely at home and has been at goal. He is on a low-sodium diet. He has not had any urinary infections. He intermittently self-catheterize 3-4 times a day. He has no clinical symptoms or signs of or tacrolimus toxicity. He should continue on NaHCO3 650 mg daily. I ordered F/U transplant renal USS along with transplant renal artery eval. He follows up with sr technical sales consultant very closely. He should remain well hydrated. All his questions were answered. Orders: Orders US renal BI 1 Month Z94.0 - Kidney transplant status, Z98.890 - Other specified postprocedural states Tacrolimus Prograf 3 Months I15.0 - Renovascular hypertension, N18.31 - Chronic kidney disease, stage 3a, Z94.0 - Kidney transplant status, Z98.890 - Other specified postprocedural states Complete Blood Count Auto Diff 3 Months I15.0 - Renovascular hypertension, N18.31 - Chronic kidney disease, stage 3a, Z94.0 - Kidney transplant status, Z98.890 - Other specified postprocedural states Electrolytes 3 Months I15.0 - Renovascular hypertension, N18.31 - Chronic kidney disease, stage 3a, Z94.0 - Kidney transplant status, Z98.890 - Other specified postprocedural states Blood Urea Nitrogen 3 Months I15.0 - Renovascular hypertension, N18.31 - Chronic kidney disease, stage 3a, Z94.0 - Kidney transplant status, Z98.890 - Other specified postprocedural states Vitamin D 25-OH Total 3 Months I15.0 - Renovascular hypertension, N18.31 - Chronic kidney disease, stage 3a, Z94.0 - Kidney transplant status, Z98.890 - Other specified postprocedural states US renal doppler 1 Month Z94.0 - Kidney transplant status, Z98.890 - Other specified postprocedural states Calcium 3 Months I15.0 - Renovascular hypertension, N18.31 - Chronic kidney disease, stage 3a, Z94.0 - Kidney transplant status, Z98.890 - Other specified postprocedural states Creatinine 3 Months I15.0 - Renovascular hypertension, N18.31 - Chronic kidney disease, stage 3a, Z94.0 - Kidney transplant status, Z98.890 - Other specified postprocedural states Phosphorus 3 Months I15.0 - Renovascular hypertension, N18.31 - Chronic kidney disease, stage 3a, Z94.0 - Kidney transplant status, Z98.890 - Other specified postprocedural states Magnesium 3 Months I15.0 - Renovascular hypertension, N18.31 - Chronic kidney disease, stage 3a, Z94.0 - Kidney transplant status, Z98.890 - Other specified postprocedural states Aspartate Amino Transferase 3 Months I15.0 - Renovascular hypertension, N18.31 - Chronic kidney disease, stage 3a, Z94.0 - Kidney transplant status, Z98.890 - Other specified postprocedural states Alanine Aminotransferase 3 Months I15.0 - Renovascular hypertension, N18.31 - Chronic kidney disease, stage 3a, Z94.0 - Kidney transplant status, Z98.890 - Other specified postprocedural states Parathyroid Hormone Intact 3 Months I15.0 - Renovascular hypertension, N18.31 - Chronic kidney disease, stage 3a, Z94.0 - Kidney transplant status, Z98.890 - Other specified postprocedural states Coding Level of Care Code Est Pt Level 4 (94556) Diagnoses Renovascular hypertension I15.0 Hypertension type: renovascular hypertension History of stent insertion of renal artery Z98.890 Renal transplant recipient Z94.0 Chronic kidney disease, stage 3a N18.31
[2025-04-26 09:41] VITALS: BP 130/60; PULSE 65; O2SAT 98; BMI 21.5
== END 2025-04-26 10:07 | disposition home or self-care (01) ==
LOC: HO.HKAS 09:31
PROVIDERS: Visit Provider Internal Medicine Nephrology
DX: I15.0 Renovascular hypertension (principal); N18.31 Chronic kidney disease, stage 3a; Z94.0 Kidney transplant status; Z98.890 Other specified postprocedural states
CPT/HCPCS: 99214

== ENCOUNTER → 2025-04-26 09:30 | Outpatient (BNVA) | payer MEDICARE, SELFPAY | PROVIDERS: Visit Provider Internal Medicine Nephrology | DX: I15.0 Renovascular hypertension (principal); N18.31 Chronic kidney disease, stage 3a; Z94.0 Kidney transplant status | CPT/HCPCS: 99212 ==

== ENCOUNTER 2025-07-20 09:49 | Outpatient (REF) | payer MEDICARE, SELFPAY ==
--- NOTE | ~2025-07-20 | US_ITS ---
US RENAL DOPPLER HISTORY: Kidney transplant status. History of left renal transplant, with renal artery stenosis and stenting of the transplant kidney. COMPARISON: None available. FINDINGS: As per technologist note, limited examination due to multiple factors, including excessive gas and body habitus. Also, the transplanted renal artery is somewhat tortuous. RENAL MEASUREMENTS: [place] left kidney was not well visualized. Right: 6.5 x 3.8 x 3.1 cm (Sag x AP x TV); appears atrophic. There are multiple cysts present, the largest in the upper pole measuring 1.9 cm. (Transplant) Left: 10.4 x 5.7 x 5.2 cm (Sag x AP x TV); numerous simple cysts, largest in the lower pole measuring 2.7 x 2.5 x 2.8 cm. No hydronephrosis or suspicious masses of either kidney. Spectral Doppler analysis: [place] Right Kidney: -Peak systolic velocity in the proximal right renal artery = 160 cm/s. Normal waveforms. -Peak systolic velocity in the mid right renal artery = 54.4 cm/s. Normal waveforms. -Peak systolic velocity in the distal right renal artery = 69.2 cm/s. Normal waveforms. -Patent right renal vein. -Upper pole interlobar artery poorly visualized. -Midpole interlobar artery resistive index of 1.0. (Abnormally elevated) -Lower pole interlobar artery resistive index of 0.58. RAR right = N/A Left TRANSPLANT Kidney: -Peak systolic velocity in the proximal left renal artery = 160 cm/s. Normal waveforms. -Peak systolic velocity in the mid left renal artery = 120 cm/s. Normal waveforms. -Peak systolic velocity in the distal left renal artery = 132 cm/s. Normal waveforms. -Patent left renal vein. -Upper pole interlobar artery resistive index of 0.78. -Mid pole interlobar artery resistive index of 0.83. (Mildly abnormally elevated). -lower pole interlobar artery resistive index of 0.86. (Mildly abnormally elevated). RAR left = N/A Aorta: -Peak systolic velocity = 139 cm/s. (Greater than 100 cm/s cannot be used to calculate the RAR). US/US renal doppler IMPRESSION: 1. There is a left renal transplant in place. Elevated resistive indices in the midpole segmental and lower pole segmental arteries of the transplanted kidney were present. No abnormal peak systolic velocities of the transplant were identified and no abnormal waveforms were noted. No hydronephrosis of the transplant kidney. 2. The [place] right kidney is atrophic with multiple cysts. There was an elevated resistive index within the midpole segmental artery. No abnormal peak systolic velocities of the [place] right kidney. No abnormal waveforms. 3. The [place] left kidney could not be well visualized and is likely near completely atrophic. 4. The RAR values could not be calculated as the peak systolic velocity of the aorta was greater than 100 cm/s. 5. There is no hydronephrosis of the [place] right kidney. Electronically signed by: Jagdeep Hammer MD 07/20/2025 11:07 AM [facility] [place]
--- OUTSIDE RECORDS SUMMARY | 2025-07-20 10:49 | XMS_ITS | Encounter Summary ---
Author Organization [facility] Address [address] [place] [address] Phone Care Team Providers Care Guest House Manager Name Role Phone Librado Walter PA-C Primary Care Provider [phone] Encounter Details Date Type Department Care Team (Late st Contact Info) Description 06/09/2022 Telephone [facility] [address] [place] [phone] Randy Addison MD [address] [place] [phone] Social History Tobacco Use Types Packs/Day Years [...] on filedocumented in this encounter Care Teams Guest House Manager Relationship Specialty Start Date End Date Librado Walter PA-C [address] [place] [address] PCP - General Physician Imaging Technologist 1/4/22 documented as of this encounter
--- OUTSIDE RECORDS SUMMARY | 2025-07-20 10:49 | XMS_ITS | Clinical Summary ---
Author Organization [facility] Address [address] [facility] [address] [place] [address] Phone Care Team Providers Care Care Manager Name Role Phone Librado Walter PA-C Primary Care Provider [phone] Allergies No known active allergies Medications aspirin [...] Dialysis finding 11/24/2021 Overview (11/24/2021): [facility] 786-2021 COSMETOLOGIST Ex-smoker 11/24/2021 Acute nontraumatic kidney injury 10/17/2020 [...] - PCV) 03/21/2015 03/21/2014 Influenza Vaccine (#1) 2025 , 07/12/2014, 04/11/2013 Pneumococcal Vaccine: Peds (0 to 5 Years) and At-Risk Patients (6 to 49 Years) Discontinued 03/21/2014 Hepatitis B Vaccine Aged Out No longe r eligible based on patient's age to complete this topic Insurance [facility] Care Teams Care Manager Relationship Specialty Start Date End Date Librado Walter PA-C [address] [place] [address] PCP - General Physician Carriage Rider 08/05/21
--- OUTSIDE RECORDS SUMMARY | 2025-07-20 10:49 | XMS_ITS | Clinical Summary ---
Author Organization [facility] Address [address] [address] Phone Care Team Providers Care Lapping Machine Tender Name Role Phone Theo Joyce MD Primary Care Provider Unavaila ble Allergies No known active allergies Medications aspirin 325 MG tablet Take 1 tablet by mouth daily. 05/10/2014 Active famotidine (PEPCID) 20 MG tablet Take 1 tablet by mouth daily. 01/30/2014 Active finasteride (PROSCAR) 5 mg tablet Take 1 tablet by mouth daily. 10/05/2011 Active tacrolimus (PROGRAF) 1 MG capsule Take 3 mg by mouth. 11/05/2014 Active mycophenolate (CELLCEPT) 200 mg/mL suspensionIndica tions:prevention of kidney transplant rejection Take 2.5 mL (500 mg total) by mouth 2 (two) times a day. 2.5 mL 11 04/18/2015 Active Active Problems Problem Noted Date Diagnosed Date End-stage renal disease 11/27/2013 Overview (09/22/2014): End stage renal disease Hypertensive disorder 11/27/2013 Overview (09/22/2014): Hypertension Benign prostatic hyperplasia 11/27/2013 Overview (09/22/2014): Benign prostatic hyperplasia Immunizations Immunization Administration Dates Next Due Influenza Nasal, Unspecified Formulation 04/11/2013 Influenza Quadrivalent Prese rvative Free IM 07/12/2014 Influenza, Unspecified Formulation 05/13(Deferred: Other - med eval. , Ordered By: [id number]) Pneumococcal, Unspecified Formulation 05/13/2014(Deferred: Other - med. immunusuppresant eval., Ordered By: [id number]),01/27/2014(Deferred: Other - , Ordered By: [id number]) Td, unspecified formulation 01/25/2009 Social History Tobacco [...] at Not on file Legal Sex Male 5:17 PM EST Gender Identity Not on file Sexual Orientation Not on file Last Filed Vital Signs Vital Sign Reading Time Taken Comments Blood Pressure 192/73 04/18/2015 10:24 AM EDT Pulse 56 04/18/2015 10:24 AM EDT Temperature 36.8 C (98.3 F) 06/07/2014 1:27 PM EST Respiratory Rate - - Oxygen Saturation 100% [...] series) 10/22/2020 09/24/2020, 09/03/2020 INFLUENZA VACCINE (#1) 2025 , 07/12/2014 HEPATITIS A VACCINES Aged Out No long er eligible based on patient's age to complete this topic HIB VACCINES Aged Out No longer eligi ble based on patient's age to complete this topic MENINGOCOCCAL VACCINES (ACWY) Aged Out No longer eligible based on patient's age to complete this topic MENINGOCOCCAL VACCINES (B) Aged Out N o longer eligible based on patient's age to complete this topic Medical Devices Not on file Insurance MEDICARE PART A & B [facility] INDEMNITY MEDICARE PART A & B [employer] IN[employer]MN[employer] MEDICARE PART A & B [employer] INDEMNITY MEDICARE PART A & B [employer] INDEMNITY MEDICARE PART A & B [employer] INDEMNITY MEDICARE PART A & B [employer] INDEMNITY MEDICARE PART A & B [employer] INDEMNITY MEDICARE PART A & B [employer] INDEMNITY MEDICARE PART A & B [employer] INDEMNITY Care Teams Lapping Machine Tender Relationship Specialty Start Date End Date Theo Joyce MD PCP - General 12/06/14 Additional Source Comments The information contained in this document represents components of the legal health record. It is not the complete legal health record.[facility]
--- OUTSIDE RECORDS SUMMARY | 2025-07-20 10:49 | XMS_ITS ---
Author Name [facility] Organization Unknown Care Team Organization Name Specialty Phone Email Start Date End Da te [facility] 06/09/20222023
== END 2025-07-20 09:50 | disposition home or self-care (01) ==
LOC: HO.US 09:49
PROVIDERS: Visit Provider Internal Medicine Nephrology
DX: Z98.890 Other specified postprocedural states (principal); Z94.0 Kidney transplant status
CPT/HCPCS: 93975

== ENCOUNTER → 2025-07-20 09:51 | Outpatient (BNV) | payer MEDICARE, SELFPAY | PROVIDERS: Visit Provider Radiology Diagnostic Radiology | DX: N28.1 Cyst of kidney, acquired (principal); Z94.0 Kidney transplant status | CPT/HCPCS: 93975 ==

== ENCOUNTER 2025-07-31 09:14 | Outpatient (AMB) | payer MEDICARE, SELFPAY ==
[2025-07-31 09:31] VITALS: BP 144/62; PULSE 67; O2SAT 99; BMI 21.3
--- NOTE | 2025-07-31 09:31 | HO.NEPHOV_ITS ---
Vital Signs 07/31/25 09:31 Height 5 ft 9 in Weight 144 lb BMI 21.3 BP 144/62 H Blood Pressure Location Lt brachial Position Sitting Pulse 67 Pulse Source Pulse Oximeter Pulse Oximetry (%) 99 Oxygen Delivery Method Room Air Intake Visit Reasons: 3mnth w labs-LVM Reconciler Required: No Accompanied by: Self / Same As Patient Allergies No Known Allergies Allergy (Verified 07/31/25 09:33) HPI Comments Details: Avery was seen in follow-up of his kidney transplant. He had donor renal transplant on 01/26/2014 in [facility] in [place]. 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 He had a follow-up transplant renal artery ultrasound which was negative for any artery stenosis. He monitors his blood pressure readings closely at home. He continues to self intermittently catheterize himself 4 times a day. He has not had any hematuria, urinary tract infection. He does not have any new skin rashes, joint swellings, fever, suprapubic pain, pain over his renal transplant, nausea, vomiting, diarrhea, shortness of breath, proximal nocturnal dyspnea, orthopnea or pedal edema. His weight has been steady and has not had any night sweats. He avoids any scdu-llq-gvgarku medications. He has H/O BCC which he follows with his motion picture set up worker . His PSA was OK with urologist( Alissa). He is on lisinopril 2.5 mg daily. His AVF is ligated. His creatinine is marginally up from baseline [facility] Medical History (Updated 01/25/25 @ 09:50 by Randy Addison MD) HTN (hypertension) History of stent insertion of renal artery Obstructive uropathy Proteinuria Hyperparathyroidism due to renal insufficiency Chronic kidney disease, stage 3a Surgical History History of surgery History of surgery History of prostate surgery Kidney transplant status Family History Father Heart disease Hypertension Social History Alcohol intake: never Patient Tobacco Use Status: Former Tobacco user Tobacco use type: Cigarette Second Hand Smoke Exposure: No Review of Systems Const All systems reviewed & are unremarkable except as noted in HPI and below Physical Exam Vital Signs: Last Vital Signs Pulse 67 07/31/25 09:31 BP 144/62 H 07/31/25 09:31 Pulse Ox 99 07/31/25 09:31 Oxygen Delivery Method Room Air 07/31/25 09:31 BMI result Body Mass Index 21.3 Const General: comfortable and no acute distress Orientation/consciousness: patient oriented x3 HEENT Head: Yes normocephalic Mouth: Normal oral and palatal mucosa present Eyes EOM: EOMs intact bilaterally Neck Neck: Yes supple Resp Auscultation: clear to auscultation bilaterally Cardio Jugular venous distension: no JVD Rate: regular rate GI Palpation (GI): Soft to palpation Auscultation: normal bowel sounds General: Yes no CVA tenderness Back/Spine/Pelvis Back: no CVA tenderness Skin General skin exam: no rashes or lesions noted Neuro General: patient oriented x3 and moves all extremities Extrem General: Yes no pedal edema Results Reviewed Nephrology Results: Hgb, (14.0-18.0) 12.7 g/dl L 11/13/24 WBC, (4.8-10.8) 7.5 X10*3/uL 11/13/24 Plt Count, (160-400) 305 X10*3/uL Δ 11/13/24 Sodium, (135-145) 136 mmol/L 11/13/24 Potassium, (3.3-5.1) 4.8 mmol/L 11/13/24 Chloride, (96-108) 109 mmol/L H 11/13/24 Carbon Dioxide, (22-29) 18 mmol/L L 11/13/24 BUN, (9-16) 39 mg/dL H 11/13/24 Creatinine, (0.5-1.4) 1.89 mg/dL H 11/13/24 Calcium, (8.4-10.2) 9.5 mg/dL 11/13/24 Renal US 07/20/25 Assessment & Plan Assessment & Plan (1) Renal transplant recipient: Code(s): Z94.0 - Kidney transplant status Category: Surgical (2) Hypertension: Code(s): I10 - Essential (primary) hypertension Category: Medical Qualifiers: Hypertension type: renovascular hypertension Qualified Code(s): I15.0 - Renovascular hypertension (3) History of stent insertion of renal artery: Comment: left Code(s): Z98.890 - Other specified postprocedural states Category: Medical (4) Metabolic acidosis: Code(s): E87.20 - Acidosis, unspecified Category: Medical (5) Chronic kidney disease, stage 3a: Code(s): N18.31 - Chronic kidney disease, stage 3a Category: Medical Plan Avery has renal transplant since 26 January 2014 ( [facility] ). His transplant function had been stable but marginally up now( we may have to D/C ACEI if goes up more) . He has not had any significant proteinuria. He had a transplant renal artery stenosis and underwent angioplasty and stenting of his renal artery. I shall repeat Doppler renal tx artery with time. He monitors his blood pressure closely at home and has been at goal. He is on a low-sodium diet. He has not had any urinary infections. He intermittently self- catheterize 3-4 times a day. He has no clinical symptoms or signs of or tacrolimus toxicity. He should continue on NaHCO3 650 mg daily. He follows up with motion picture set up worker very closely. He should remain well hydrated. All his questions were answered. Orders: Orders Creatinine 6 Weeks Z94.0 - Kidney transplant status Blood Urea Nitrogen 6 Weeks Z94.0 - Kidney transplant status Electrolytes 6 Weeks Z94.0 - Kidney transplant status Creatinine 3 Months Z94.0 - Kidney transplant status Calcium 3 Months Z94.0 - Kidney transplant status Tacrolimus Prograf 6 Weeks Z94.0 - Kidney transplant status Complete Blood Count Auto Diff 3 Months Z94.0 - Kidney transplant status Tacrolimus Prograf 3 Months Z94.0 - Kidney transplant status Electrolytes 3 Months Z94.0 - Kidney transplant status Blood Urea Nitrogen 3 Months Z94.0 - Kidney transplant status Protein Creatinine Ratio, Ur 3 Months Z94.0 - Kidney transplant status Other Ref Test - Misc 3 Months Z94.0 - Kidney transplant status Hemoglobin A1c 3 Months Z94.0 - Kidney transplant status Coding Level of Care Code Est Pt Level 4 (84382) Diagnoses Renal transplant recipient Z94.0 Renovascular hypertension I15.0 Hypertension type: renovascular hypertension History of stent insertion of renal artery Z98.890 Metabolic acidosis E87.20 Chronic kidney disease, stage 3a N18.31
--- OUTSIDE RECORDS SUMMARY | 2025-07-31 11:41 | XMS_ITS | Clinical Summary ---
Author Organization [facility] Address [address] [facility] [address] [place] [address] Phone Care Team Providers Care Oil Filters Inspector Name Role Phone Librado Walter PA-C Primary Care Provider [phone] Allergies No known active allergies Medications aspirin [...] Dialysis finding 11/24/2021 Overview (11/24/2021): [facility] 786-2021 FAST FOOD SERVICES MANAGER Ex-smoker 11/24/2021 Acute nontraumatic kidney injury 10/17/2020 [...] patient's age to complete this topic Insurance [facility] Care Teams Oil Filters Inspector Relationship Specialty Start Date End Date Librado Walter PA-C [address] [place] [address] PCP - General Physician Coding Assistant 08/05/21
--- OUTSIDE RECORDS SUMMARY | 2025-07-31 11:41 | XMS_ITS | Encounter Summary ---
Author Organization [facility] Address [address] [place] [address] Phone Care Team Providers Care Clay Maker Name Role Phone Librado Walter PA-C Primary Care Provider Encounter Details Date Type Department Care Team (Late st Contact Info) Description 06/09/2022 Telephone [facility] [address] [place] [phone] Randy Addison MD [address] [place] [id number] Social History Tobacco Use Types Packs/Day Years [...] on filedocumented in this encounter Care Teams Clay Maker Relationship Specialty Start Date End Date Librado Walter PA-C [address] [place] [address] PCP - General Physician Shipmaster 1/4/22 documented as of this encounter
--- OUTSIDE RECORDS SUMMARY | 2025-07-31 11:41 | XMS_ITS | Clinical Summary ---
Author Organization [facility] Address [address] [address] Phone Care Team Providers Care Separator Inserter Name Role Phone Theo Joyce MD Primary [...] Other - med eval. , Ordered By: [id number]) Pneumococcal, Unspecified Formulation 05/13/2014(Deferred: Other - med. immunusuppresant eval., Ordered By: [id number]),01/27/2014(Deferred: Other - , Ordered By: [id number]) Td, unspecified formulation 01/25/2009 Social History Tobacco [...] file Insurance MEDICARE PART A & B [facility] INDEMNITY MEDICARE PART A & B [employer] INDEMNITY MEDICARE PART A & B Member Subscriber Plan / Payer ( fective 2008-Present) Name:Letitia Liu Member ID:[id number] Relation to Subscriber:Self Name:LETITIA LIU Subscriber ID:[id number] Payer ID:[id number] Group ID:Not on file Type:Medicare Address: [facility] [address] [place] [phone] [employer] INDEMNITY MEDICARE PART A & B [employer] INDEMNITY MEDICARE PART A & B [employer] INDEMNITY MEDICARE PART A & B [employer] INDEMNITY MEDICARE PART A & B [employer] INDEMNITY MEDICARE PART A & B [employer] INDEMNITY MEDICARE PART A & B [employer] INDEMNITY Care Teams Separator Inserter Relationship Specialty Start Date End Date Theo Joyce MD PCP - General 12/06/14 Additional Source Comments The information contained in this document represents components of the legal health record. It is not the complete legal health record.[facility]
== END 2025-07-31 10:05 | disposition home or self-care (01) ==
LOC: HO.HKAS 09:15
PROVIDERS: Visit Provider Internal Medicine Nephrology
DX: Z94.0 Kidney transplant status (principal); I15.0 Renovascular hypertension; Z98.890 Other specified postprocedural states; E87.20 Acidosis, unspecified; N18.31 Chronic kidney disease, stage 3a
CPT/HCPCS: 99214

== ENCOUNTER → 2025-07-31 09:14 | Outpatient (BNVA) | payer MEDICARE, SELFPAY | PROVIDERS: Visit Provider Internal Medicine Nephrology | DX: N18.31 Chronic kidney disease, stage 3a (principal); I15.0 Renovascular hypertension; E87.20 Acidosis, unspecified; Z94.0 Kidney transplant status; Z98.890 Other specified postprocedural states; Z79.899 Other long term (current) drug therapy; Z87.891 Personal history of nicotine dependence | CPT/HCPCS: 99212 ==